=== PATIENT | female | born 2005 | race Hispanic/Latino ===

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

== ENCOUNTER 2023-09-22 07:38 | Emergency (ER) | payer OTHER ==
--- OUTSIDE RECORDS SUMMARY | 2023-09-22 07:42 | XMS REPORT | Continuity of Care Document ---
:2005 Author Organization [facility] t Address [address] [place] [address] [address] [place] [address] Care Team Providers Name Role Phone Steve Medeiros MD Primary Care Physician [phone] OTHER, ENTER NAME IN NOTES Attending Clinician Unavailable GENET SELLERS Attending Clinician Unavailable [email or web address] Attending Clinician Unavailable L_Borisa Attending Clinician Unavailable [id number], [id number] Attending Clinician Unavailable COLIN ROLLINS Attending Clinician Unavailable Colin Rollins Attending Clinician Kylie Greene Attending Clinician [phone] BECCA_Bell Attending Clinician Unavailable Caroline Gonzalez Attending Clinician [phone] MING RICHMOND Attending Clinician Unavailable MING RICHMOND Attending Clinician Unavailable Doctor Unassigned, [place] Attending Clinician Unavailable Meaghan Jaramillo Attending Clinician Unavailable RADIOLOGY Attending Clinician Unavailable Radiology Attending Clinician Unavailable Sofia Post Attending Clinician [phone] [email or web address] Admitting Clinician Unavailable L_Pena Admitting Clinician Unavailable COLIN ROLLINS Admitting Clinician Unavailable Labhelgae, [facility] Admitting Clinician WATERS_S Admitting Clinician Unavailable Physician, No Primary or Family Admitting Clinician UnavailERIN Soto Admitting Clinician Unavailable Payers Payer Name Policy Type Policy Number Effective Date Expiration Date Bell jackson CIGNA [id number] 2019 2022 00:00:00 00:00:00 XIANG JUDD - [id number] AETNA (PPO) AETNA 2 [id number] 2023 00:00:00 CIGNA - ACS [id number] 2019 BENEFIT SERVICES 00:00:00 (PPO) CIGNA GENERIC [id number] 2021 00:00:00 Problems Condition Condition Condition Status Onset Resolution Last Treating Co mments Source Name Details Category Date Date Treatment Clinician Date DARIER'S DARIER'S Diagnosis Active 2023-06-29 Memoria DZ DZ Active 06-20 16:10:00 l 06/20/2023 00:00: Kvng SNYDER [address] 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 3-08 Communi and and 00:00: ty 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 spita disorder Disorder l Clinics Mood Mood Problem Active [place] swings Swings 3-08 Communi 00:00: ty 00 [facility] Clin[facility] Acute Acute Problem Active [place] right Right 222 Communi otitis Otitis 00:00: ty media Media 00 Hospita Clinics Otalgia of Otalgia of Problem Active S [facility] left ear Left Ear 2 Commun i 00:00: ty 00 [facility]ospita l Clinics Otalgia of Otalgia of Problem Active [facility] [place] right ear Right Ear 2- Comm uni 00:00: ty Hospita l Clinics Viral Viral Problem Active 2021-11 [place] syndrome Syndrome 2- Commun i 00:00: ty 00 [facility]ospita Clinics Headache Headache Problem Active 2021-11 [facility] 2- Communi 00:00: ty 00 [facility]osp[facility] Clin[facility] Diarrhea Diarrhea Problem Active 2021-11 [facility] 2 Communi 00:00: ty 00 [facility]ospita l Clinics Streptococ Streptococ Problem Active 2021-11 S [facility]en[facility] korey sore korey Sore 2-02 Commun i throat Throat 00:00: ty 00 [facility] Pain in Pain in Problem Active 2021-11 [place] throat Throat 2-02 Communi 00:00: ty 00 [facility] Nasal Nasal Problem Active 2021-11 [place] congestion Congestion 2-02 Co mmuni 00:00: ty 00 [employer] Fatigue Fatigue Problem Active 2021-11 [place] 2-02 Communi 00:00: ty 00 [facility] Recurrent Recurrent Problem Active Swe mike urinary Urinary 9-15 Communi tract Tract 00:00: ty infection Infection 00 [facility] Nausea and Nausea and Problem Active S [facility] vomiting Vomiting 9-15 Commun i 00:00: ty 00 [employer] Nausea Nausea Problem Active [place] 9-15 Communi 00:00: ty 00 [employer] Upper Upper Problem Active [place] abdominal Abdominal 9-15 Comm uni pain Pain 00:00: ty 00 [employer] Urinary Urinary Problem Active [place] tract Tract 7-18 Communi infectious Infectious 00:00: ty disease Disease 00 [facility] Cyst of Cyst of Problem Active [place] ovary Ovary 7-18 Communi 00:00: ty 00 [employer] Pain in Pain in Problem Active [place] pelvis Pelvis 7-18 Communi 00:00: ty 00 [employer] Abdominal Abdominal Problem Active Swe mike pain Pain 7-18 Communi 00:00: ty 00 [facility] Initiation Initiation Disease Active U nivers of oral of oral 3-25 ity of contracept [place]pt [place] [facility] Nexplanon Nexplanon Disease Active Uni vers in place in place 3-25 ity of 00:00: [place] [facility] Obesity Obesity Disease Active Univers (BMI (BMI 3-25 ity of 30-39.9) 30-39.9) 00:00: [place] [facility] Darier's Darier's Disease Active Unive rs disease disease 3-25 ity of 00:00: [place] 00 [facility] Cyst of Cyst of Disease Active Univers ovary, ovary, 3-25 ity of unspecifie unspecifie [place] [facility] laterality laterality Br anch Endometrio Endometrio Disease Active U frannyers sis sis 3-25 ity of 00:00: [place] 00 [facility] History of History of Disease Active U aileen depression depression 3-25 it y of 00:00: [place] 00 [facility] Darier Darier Problem Active [place] disease Disease 5-13 Communi 00:00: ty 00 Hospita l Clinics Obesity Obesity Problem Active 2023-06-25 Me moria (disorder) (disorder) 04:21:16 l Active [place] Problem 06/25/2023 [facility] Allergies, Adverse Reactions, Alerts Allergy Allergy Status Severity Reaction(s) Onset Inactive Treating Comm ents Source Name Type Date Date Clinician Vancomyc Propensi Active Unknown - Uni vers in ty to See comments 3-25 ity of adverse 00:00: [place] reaction 00 Medical s Branch VANCOMYC DRUG Active Unknown-Cmnt Un simran IN INGREDI 3-25 ity of 00:00: [place] 00 [facility] vancomyc DA Active SV THROAT [facility] in CLOSING 01-05 [place] 00:00: d 00 Medical [place] vancomyc vancomyc Active Memori a in in l [place] Aloe Aloe Active Memoria Vera Vera l Juice Juice Vega Kiwi-Str Kiwi-Str awberry awberry Social History Social Habit Start Date Stop Date Quantity Comments Source History SDOH [facility] o [facility] Alcohol Std [place] [facility] Drinks [facility] History SDOH [facility] o f Alcohol Binge [place] [facility] History SDGA [facility] o f Alcohol Comment [place] [facility] Alcohol intake 2023-05-16 2023-05-16 Lifetime [facility] 00:00:00 00:00:00 non-drinker (finding) Tobacco use and 2022-05-10 2022-05-10 Smokeless tobacco [facility] exposure 00:00:00 00:00:00 non-user Exposure to 2022-01-06 2022-02-05 Not sure University of SARS-CoV-2 00:00:00 15:00:00 [place] [facility] (event) [facility] History SDOH 2022-02-05 2022-02-05 1 [place] o f Alcohol Frequency 00:00:00 00:00:00 [facility] Sex Assigned At [birth year] [facility] 00:00:00 00:00:00 Smoking Status Start Date Stop Date Source Tobacco smoking status [facility] Vega Medications Ordered Filled Start Stop Current Ordering Indication Dosage Frequency Signature Comments Components Source Medication Medication Date Date Medication? Clinician (SIG) Name Name linezolid Yes 600 mg = 1 Me moria 600 mg oral 8-09 tab, PO, l tablet 20:15: Q12H, X 10 Margie nn 00 day, # 20 tab, 0 Refill(s), Pharmacy: [facility] [id number], 165.1, cm, 06/20/23 20:17:00 CDT, Height, 87.273, kg, 06/20/23 20:17:00 CDT, Weight Wegovy (1 Yes 1 mg = 0.5 Me moria mg dose) 8-08 mL, SUB-Q, l subcutaneou 16:57: QTue, # 2 H ermann s solution 00 mL, 0 Refill(s) clindamycin Yes [id number] Apply U T (Clindagel) 6-27 daily to Heal th 1 % gel 00:00: face for 00 acne clindamycin Yes [id number] Apply U T (Clindagel) 6-27 daily to Heal th 1 % gel 00:00: face for 00 acne Norethindrn 2021- No [id number] 1{tbl} Take 1 Univers A-E -25 -18 tablet by ity of Estradiol-I 00:00[place] 04:[place] :00 daily Medical (BLISOVI 24 before a Bran ch FE) 1 mg-20 meal for mcg (24)/75 84 doses. mg (4) per tablet Norethindrn 2021- No [id number] 1{tbl} Take 1 Univers A-E 3-25 06-18 tablet by ity of Estradiol-I 00:00: 04:[place] :00 daily Medical (BLISOVI 24 before a Bran ch FE) 1 mg-20 meal for mcg (24)/75 84 doses. mg (4) per tablet pantoprazol Yes Univer s e 40 mg EC 3-22 ity of tablet 00:00: [address] pantoprazol Yes Univer s e 40 mg EC 3-22 ity of tablet 00:00: [address] methotrexat methotrexat No methotrexa [place] e sodium e sodium 5-13 te sodium Co mmuni 2.5 mg 2.5 mg 00:00: 2.5 mg ty tablet TAKE tablet TAKE 00 tablet Hospita 8 TABLETS 8 TABLETS TAKE 8 l PER WEEK. PER WEEK. TABLETS Cl inics PER WEEK. methotrexat methotrexat No methotrexa [place] e sodium e sodium 5-13 te sodium Co mmuni 2.5 mg 2.5 mg 00:00: 2.5 mg ty tablet TAKE tablet TAKE 00 tablet Hospita 8 TABLETS 8 TABLETS TAKE 8 l PER WEEK. PER WEEK. TABLETS Cl inics PER WEEK. methotrexat methotrexat No methotrexa [place] e sodium e sodium 5-13 te sodium Co mmuni 2.5 mg 2.5 mg 00:00: 2.5 mg ty tablet TAKE tablet TAKE 00 tablet Hospita 8 TABLETS 8 TABLETS TAKE 8 l PER WEEK. PER WEEK. TABLETS Cl inics PER WEEK. doxycycline doxycycline No 1capsul BID doxycyclin [place] hyclate 100 hyclate 100 e(s) e hyclate Communi mg capsule mg capsule 100 mg t y Take 1 Take 1 capsule Hospita capsule capsule Take 1 l twice a day twice a day capsule Clinics by oral by oral twice a route for route for day by 10 days. 10 days. oral route for 10 days. famotidine famotidine No 1 Q1D famotidine [place] 20 mg 20 mg 20 mg Communi tablet Take tablet Take tablet ty 1 tablet 1 tablet Take 1 Hospi ta every day every day tablet l by oral by oral every day Clin ics route. route. by oral route. folic acid folic acid No folic acid [place] 1 mg tablet 1 mg tablet 1 mg C ommuni TAKE 1 TAKE 1 tablet ty TABLET BY TABLET BY TAKE 1 [facility] MOUTH EVERY MOUTH EVERY TABLET BY l DAY DAY MOUTH Clinics EVERY DAY Gas Relief Gas Relief No 1capsul TID Gas Relief [place] (simethicon (simethicon e(s) (simethico Communi e) 250 mg e) 250 mg ne) 250 mg ty capsule capsule capsule Hospit a Take 1 Take 1 Take 1 l capsule 3 capsule 3 capsule 3 Clinics times a day times a day times a by oral by oral day by route. route. oral route. Nexplanon Nexplanon No Nexplanon [place] 68 mg 68 mg 68 mg Communi subdermal subdermal subdermal ty implant implant implant Hospit a Inject by Inject by Inject by l subcutaneou subcutaneou subcutaneo Clinics s route. s route. us route. pantoprazol pantoprazol No 1 Q1D pantoprazo [place] e 40 mg e 40 mg le 40 mg Commu ni tablet,imelda tablet,imelda tablet,del ty yed release yed release ayed H ospita Take 1 Take 1 release l tablet tablet Take 1 Clinics every day every day tablet by oral by oral every day route. route. by oral route. Lenora 24 Lenora 24 No [place] 24 [place] Fe 1 mg-20 Fe 1 mg-20 Fe 1 mg-20 Communi mcg (24)/75 mcg (24)/75 mcg t y mg (4) mg (4) (24)/75 mg Hospi ta tablet TAKE tablet TAKE (4) tablet l 1 TABLET BY 1 TABLET BY TAKE 1 Clinics MOUTH DAILY MOUTH DAILY TABLET BY BEFORE A BEFORE A MOUTH MEAL FOR 84 MEAL FOR 84 DAILY DOSES. DOSES. BEFORE A MEAL FOR 84 DOSES. amoxicillin amoxicillin No 1 Q12H amoxicilli [place] [phone] n 875 Communi mg-potassiu mg-potassiu mg-potassi ty m m [facility] clavulanate clavulanate clavulanat l 125 mg 125 mg e 125 mg Clinics tablet Take tablet Take tablet 1 tablet 1 tablet Take 1 every 12 every 12 tablet hours by hours by every 12 oral route oral route hours by for 10 for 10 oral route days. days. for 10 days. benzonatate benzonatate No 1capsul TID benzonatat [place] 200 mg 200 mg e(s) e 200 mg Communi capsule capsule capsule ty Take 1 Take 1 Take 1 Hospita capsule 3 capsule 3 capsule 3 l times a day times a day times a Clinics by oral by oral day by route as route as oral route needed for needed for as needed 7 days. 7 days. for 7 days. [place] 24 [place] 24 No [place] 24 [place] Fe 1 mg-20 Fe 1 mg-20 Fe 1 mg-20 Communi mcg (24)/75 mcg (24)/75 mcg t y mg (4) mg (4) (24)/75 mg Hospi ta tablet TAKE tablet TAKE (4) tablet l 1 TABLET BY 1 TABLET BY TAKE 1 Clinics MOUTH DAILY MOUTH DAILY TABLET BY BEFORE A BEFORE A MOUTH MEAL FOR 84 MEAL FOR 84 DAILY DOSES. DOSES. BEFORE A MEAL FOR 84 DOSES. amoxicillin amoxicillin No 1 Q12H amoxicilli [place] [phone] n 875 Communi mg-potassiu mg-potassiu mg-potassi ty m m um Hospita clavulanate clavulanate clavulanat l 125 mg 125 mg e 125 mg Clinics tablet Take tablet Take tablet 1 tablet 1 tablet Take 1 every 12 every 12 tablet hours by hours by every 12 oral route oral route hours by for 10 for 10 oral route days. days. for 10 days. benzonatate benzonatate No 1capsul TID benzonatat [place] 200 mg 200 mg e(s) e 200 mg Communi capsule capsule capsule ty Take 1 Take 1 Take 1 Hospita capsule 3 capsule 3 capsule 3 l times a day times a day times a Clinics by oral by oral day by route as route as oral route needed for needed for as needed 7 days. 7 days. for [address] 24 No [place] 24 [place] Fe 1 mg-20 Fe 1 mg-20 Fe 1 mg-20 Communi mcg (24)/75 mcg (24)/75 mcg t y mg (4) mg (4) (24)/75 mg Hospi ta tablet TAKE tablet TAKE (4) tablet l 1 TABLET BY 1 TABLET BY TAKE 1 [facility] MOUTH DAILY MOUTH DAILY TABLET BY BEFORE A BEFORE A MOUTH MEAL FOR 84 MEAL FOR 84 DAILY DOSES. DOSES. BEFORE A MEAL FOR 84 DOSES. [place] 24 [place] 24 No [place] 24 [place] Fe 1 mg-20 Fe 1 mg-20 Fe 1 mg-20 Communi mcg (24)/75 mcg (24)/75 mcg t y mg (4) mg (4) (24)/75 mg Hospi ta tablet TAKE tablet TAKE (4) tablet l 1 TABLET BY 1 TABLET BY TAKE 1 Clinics MOUTH DAILY MOUTH DAILY TABLET BY BEFORE A BEFORE A MOUTH MEAL FOR 84 MEAL FOR 84 DAILY DOSES. DOSES. BEFORE A MEAL FOR 84 DOSES. sulfamethox sulfamethox No 1 Q12H sulfametho [place] azole 800 azole 800 xazole 800 Communi mg-trimetho mg-trimetho mg-trimeth ty prim 160 mg prim 160 mg oprim 160 Hospita tablet Take tablet Take mg tablet l 1 tablet 1 tablet Take 1 Clini cs every 12 every 12 tablet hours by hours by every 12 oral route oral route hours by for 10 for 10 oral route days. days. for 10 days. Nexplanon Nexplanon No Nexplanon [place] 68 mg 68 mg 68 mg Communi subdermal subdermal subdermal ty implant implant implant Hospit a l Clinics ondansetron ondansetron No 1 BID ondansetro [place] 8 mg 8 mg n 8 mg Communi disintegrat disintegrat disintegra ty ing tablet ing tablet ting [facility] Place 1 Place 1 tablet l tablet tablet Place 1 Clinics twice a day twice a day tablet by by twice a translingua translingua day by l route as l route as translingu needed for needed for al route 3 days. 3 days. as needed for 3 days. cefdinir cefdinir No 1capsul Q12H cefdinir [place] 300 mg 300 mg e(s) 300 mg Communi capsule capsule capsule ty Take 1 Take 1 Take 1 Hospita capsule capsule capsule l every 12 every 12 every 12 Cli nics hours by hours by hours by oral route oral route oral route for 10 for 10 for 10 days. days. days. Cortisporin Cortisporin No 4drop(s QID Cortispori [place] -TC 3.3 -TC 3.3 ) n-TC 3.3 Commu ni mg-3 mg-10 mg-3 mg-10 mg-3 mg-10 ty mg-0.5 mg-0.5 mg-0.5 Hospita mg/mL ear mg/mL ear mg/mL ear l drops,suspe drops,suspe drops,susp Clinics nsion nsion ension Instill 4 Instill 4 Instill 4 drops 4 drops 4 drops 4 times a day times a day times a by otic by otic day by route as route as otic route directed. directed. as directed. hydrocodone hydrocodone No hydrocodon [place] 7.5 7.5 e 7.5 Communi mg-acetamin mg-acetamin mg-acetami ty ophen 325 ophen 325 nophen 325 Hospita mg tablet mg tablet mg tablet l TAKE 1 TAKE 1 TAKE 1 Clinics TABLET BY TABLET BY TABLET BY MOUTH EVERY MOUTH EVERY MOUTH 4 TO 6 4 TO 6 EVERY 4 TO HOURS HOURS 6 HOURS NEEDED FOR NEEDED FOR NEEDED FOR PAIN PAIN PAIN Nexplanon Nexplanon No Nexplanon [place] 68 mg 68 mg 68 mg Communi subdermal subdermal subdermal ty implant implant implant Hospit a l Clinics ondansetron ondansetron No ondansetro [place] 4 mg 4 mg n 4 mg Communi disintegrat disintegrat disintegra ty ing tablet ing tablet ting [facility] DISSOLVE 1 DISSOLVE 1 tablet l TABLET TABLET DISSOLVE 1 Clini cs UNDER UNDER TABLET TONGUE TONGUE UNDER EVERY 6 EVERY 6 TONGUE HOURS HOURS EVERY 6 NEEDED FOR NEEDED FOR HOURS NAUSEA NAUSEA NEEDED FOR NAUSEA ondansetron ondansetron No ondansetro [place] 8 mg 8 mg n 8 mg Communi disintegrat disintegrat disintegra ty ing tablet ing tablet ting [facility] PL[facility] [address] 1 tablet l TABLET TABLET PLACE 1 Clinics TWICE A DAY TWICE A DAY TABLET BY BY TWICE A TRANSLINGUA TRANSLINGUA DAY BY L ROUTE L ROUTE TRANSLINGU NEEDED FOR NEEDED FOR AL ROUTE 3 DAYS. 3 DAYS. NEEDED FOR 3 DAYS. azithromyci azithromyci No 1 Q1D azithromyc [place] n 500 mg n 500 mg in 500 mg Co mmuni tablet Take tablet Take tablet ty 1 tablet 1 tablet Take 1 Hospi ta every day every day tablet l by oral by oral every day Clin ics route for 5 route for 5 by oral days. days. route for 5 days. Blisovi Fe Blisovi Fe No Blisovi Fe [place] 12/03 (28) 1 12/03 (28) 1 12/03 (28) Communi mg-20 mcg mg-20 mcg 1 mg-20 ty (21)/75 mg (21)/75 mg mcg [facility] (7) tablet (7) tablet (21)/75 mg l (7) tablet Clinics ondansetron ondansetron No ondansetro [place] 4 mg 4 mg n 4 mg Communi disintegrat disintegrat disintegra ty ing tablet ing tablet ting [facility] DISSOLVE 1 DISSOLVE 1 tablet l TABLET TABLET DISSOLVE 1 Clini cs UNDER UNDER TABLET TONGUE TONGUE UNDER EVERY 6 EVERY 6 TONGUE HOURS HOURS EVERY 6 NEEDED FOR NEEDED FOR HOURS NAUSEA NAUSEA NEEDED FOR NAUSEA ondansetron ondansetron No ondansetro [place] 8 mg 8 mg n 8 mg Communi disintegrat disintegrat disintegra ty ing tablet ing tablet ting [facility] PL[facility] [address] 1 tablet l TABLET TABLET PLACE 1 Clinics TWICE A DAY TWICE A DAY TABLET BY BY TWICE A TRANSLINGUA TRANSLINGUA DAY BY L ROUTE L ROUTE TRANSLINGU NEEDED FOR NEEDED FOR AL ROUTE 3 DAYS. 3 DAYS. NEEDED FOR 3 DAYS. Blisovi Fe Blisovi Fe No Blisovi Fe [place] 12/03 () 1 12/03 () 1 12/03 () Communi mg-20 mcg mg-20 mcg 1 mg-20 ty (21)/75 mg (21)/75 mg mcg [facility] (7) tablet (7) tablet (21)/75 mg l (7) tablet Clinics Linzess 290 Linzess 290 No Linzess [place] mcg capsule mcg capsule 290 mcg Communi capsule ty Hospita l Clinics ondansetron ondansetron No ondansetro [place] 4 mg 4 mg n 4 mg Communi disintegrat disintegrat disintegra ty ing tablet ing tablet ting [facility] DISSOLVE 1 DISSOLVE 1 tablet l TABLET TABLET DISSOLVE 1 Clini cs UNDER UNDER TABLET TONGUE TONGUE UNDER EVERY 6 EVERY 6 TONGUE HOURS HOURS EVERY 6 NEEDED FOR NEEDED FOR HOURS NAUSEA NAUSEA NEEDED FOR NAUSEA ondansetron ondansetron No ondansetro [place] 8 mg 8 mg n 8 mg Communi disintegrat disintegrat disintegra ty ing tablet ing tablet ting [facility] PL[facility] [address] 1 tablet l TABLET TABLET PLACE 1 Clinics TWICE A DAY TWICE A DAY TABLET BY BY TWICE A TRANSLINGUA TRANSLINGUA DAY BY L ROUTE L ROUTE TRANSLINGU NEEDED FOR NEEDED FOR AL ROUTE 3 DAYS. 3 DAYS. NEEDED FOR 3 DAYS. Blisovi Fe Blisovi Fe No Blisovi Fe [place] 12/03 (28) 1 12/03 (28) 1 12/03 (28) Communi mg-20 mcg mg-20 mcg 1 mg-20 ty (21)/75 mg (21)/75 mg mcg [facility] (7) tablet (7) tablet (21)/75 mg l (7) tablet Clinics chlorhexidi chlorhexidi No chlorhexid [place] ne ne ine Communi gluconate gluconate gluconate ty 0.12 % 0.12 % 0.12 % Hospita mouthwash mouthwash mouthwash l SWAB SWAB SWAB Clinics IMPLANT IMPLANT IMPLANT WITH WITH WITH SOLUTION SOLUTION SOLUTION TWICE DAILY TWICE DAILY TWICE AFTER AFTER DAILY BRUSHING. BRUSHING. AFTER SPIT DO NOT SPIT DO NOT BRUSHING. SWALLOW SWALLOW SPIT DO NOT SWALLOW hydrocodone hydrocodone No hydrocodon [place] 7.5 7.5 e 7.5 Communi mg-acetamin mg-acetamin mg-acetami ty ophen 325 ophen 325 nophen 325 Hospita mg tablet mg tablet mg tablet l TAKE 1 TAKE 1 TAKE 1 Clinics TABLET TABLET TABLET EVERY 4 TO EVERY 4 TO EVERY 4 TO 6 HOURS 6 HOURS 6 HOURS NEEDED FOR NEEDED FOR NEEDED FOR PAIN PAIN PAIN neomycin-po neomycin-po No neomycin-p [place] lymyxin-hyd lymyxin-hyd olymyxin-h Communi rocort 3.5 rocort 3.5 ydrocort ty mg-10,000 mg-10,000 3.5 Hospi ta unit/mL-1 % unit/mL-1 % mg-10,000 l ear ear unit/mL-1 Clinics drops,susp drops,susp % ear INSTILL 4 INSTILL 4 drops,susp DROPS INTO DROPS INTO INSTILL 4 AFFECTED AFFECTED DROPS INTO EAR(S) BY EAR(S) BY AFFECTED OTIC ROUTE OTIC ROUTE EAR(S) BY 3 TIMES PER 3 TIMES PER OTIC ROUTE DAY FOR 7 DAY FOR 7 3 TIMES DAYS DAYS PER DAY FOR 7 DAYS aripiprazol aripiprazol No 1 Q1D aripiprazo [place] e 2 mg e 2 mg le 2 mg Communi tablet Take tablet Take tablet ty 1 tablet 1 tablet Take 1 Hospi ta every day every day tablet l by oral by oral every day Clin ics route. route. by oral route. Blisovi Fe Blisovi Fe No Blisovi Fe [place] 12/03 (28) 1 12/03 (28) 1 12/03 (28) Communi mg-20 mcg mg-20 mcg 1 mg-20 ty (21)/75 mg (21)/75 mg mcg [facility] (7) tablet (7) tablet (21)/75 mg l (7) tablet Clinics chlorhexidi chlorhexidi No chlorhexid [place] ne ne mercedes Mejiai gluconate gluconate gluconate ty 0.12 % 0.12 % 0.12 % Hospita mouthwash mouthwash mouthwash l SWAB SWAB SWAB [facility] IMPLANT IMPLANT IMPLANT WITH WITH WITH SOLUTION SOLUTION SOLUTION TWICE DAILY TWICE DAILY TWICE AFTER AFTER DAILY BRUSHING. BRUSHING. AFTER SPIT DO NOT SPIT DO NOT BRUSHING. SWALLOW SWALLOW SPIT DO NOT SWALLOW aripiprazol aripiprazol No aripiprazo [place] e 2 mg e 2 mg le 2 mg Communi tablet TAKE tablet TAKE tablet ty 1 TABLET BY 1 TABLET BY TAKE 1 Hospita MOUTH EVERY MOUTH EVERY TABLET BY l DAY DAY MOUTH Clinics EVERY DAY chlorhexidi chlorhexidi No chlorhexid [place] ne ne ine Communi gluconate gluconate gluconate ty 0.12 % 0.12 % 0.12 % Hospita mouthwash mouthwash mouthwash l SWAB SWAB SWAB [facility] IMPLANT IMPLANT IMPLANT WITH WITH WITH SOLUTION SOLUTION SOLUTION TWICE DAILY TWICE DAILY TWICE AFTER AFTER DAILY BRUSHING. BRUSHING. AFTER SPIT DO NOT SPIT DO NOT BRUSHING. SWALLOW SWALLOW SPIT DO NOT SWALLOW Loryna (28) Loryna (28) No Loryna [place] 3 mg-0.02 3 mg-0.02 (28) 3 Com luis mg tablet mg tablet mg-0.02 mg ty TAKE 1 TAKE 1 tablet Hospita TABLET BY TABLET BY TAKE 1 l MOUTH EVERY MOUTH EVERY TABLET BY Clinics DAY FOR 28 DAY FOR 28 MOUTH DAYS DAYS EVERY DAY FOR 28 DAYS compounded compounded No compounded [place] medication medication medication Communi Semagltuide Semagltuide Semagltuid ty /12 SQ QW /12 SQ QW e/12 SQ QW Hospita increase as increase as increase l tolerated tolerated as Clini cs on weekly on weekly tolerated increments increments on weekly as directed as directed increments as directed aripiprazol aripiprazol No aripiprazo [place] e 2 mg e 2 mg le 2 mg Communi tablet TAKE tablet TAKE tablet ty 1 TABLET BY 1 TABLET BY TAKE 1 Hospita MOUTH EVERY MOUTH EVERY TABLET BY l DAY DAY MOUTH Clinics EVERY DAY compounded compounded No compounded [place] medication medication medication Communi Semagltuide Semagltuide Semagltuid ty /12 SQ QW /12 SQ QW e/12 SQ QW Hospita increase as increase as increase l tolerated tolerated as Clini cs on weekly on weekly tolerated increments increments on weekly as directed as directed increments as directed Loryna (28) L[place]na (28) No 1 Q1D Loryna [place] 3 mg-0.02 3 mg-0.02 (28) 3 Com luis mg tablet mg tablet mg-0.02 mg ty Take 1 Take 1 tablet Hospita tablet tablet Take 1 l every day every day tablet Cli nics by oral by oral every day route. route. by oral route. ondansetron ondansetron No ondansetro [place] 4 mg 4 mg n 4 mg Communi disintegrat disintegrat disintegra ty ing tablet ing tablet ting [facility] PL[facility] [address] PL[address] 2 tablet l TABLETS TABLETS PLACE 2 Clinic s TWICE A DAY TWICE A DAY TABLETS BY BY TWICE A TRANSLINGUA TRANSLINGUA DAY BY L ROUTE FOR L ROUTE FOR TRANSLINGU 10 DAYS. 10 DAYS. AL ROUTE FOR 10 DAYS. compounded compounded No compounded [place] medication medication medication Communi Semagltuide Semagltuide Semagltuid ty /12 SQ QW /12 SQ QW e/12 SQ QW Hospita increase as increase as increase l tolerated tolerated as Clini cs on weekly on weekly tolerated increments increments on weekly as directed as directed increments as directed compounded compounded No compounded [place] medication medication medication Communi Semagltuide Semagltuide Semagltuid ty /12 SQ QW /12 SQ QW e/12 SQ QW Hospita increase as increase as increase l tolerated tolerated as Clini cs on weekly on weekly tolerated increments increments on weekly as directed as directed increments as directed ondansetron ondansetron No 2 BID ondansetro [place] 4 mg 4 mg n 4 mg Communi disintegrat disintegrat disintegra ty ing tablet ing tablet ting [facility] 2 Place 2 tablet l tablets tablets Place 2 Clinic s twice a day twice a day tablets by by twice a translingua translingua day by l route for l route for translingu 10 days. 10 days. al route for 10 days. silver silver No silver [place] sulfadiazin sulfadiazin sulfadiazi Communi e 1 % e 1 % ne 1 % ty topical topical topical Hospit a cream APPLY cream APPLY cream l TO AFFECTED TO AFFECTED APPLY TO Clinics AREA EVERY AREA EVERY AFFECTED DAY DAY AREA EVERY DAY aripiprazol aripiprazol No 1 Q1D aripiprazo [place] e 2 mg e 2 mg le 2 mg Communi tablet Take tablet Take tablet ty 1 tablet 1 tablet Take 1 Hospi ta every day every day tablet l by oral by oral every day Clin ics route for route for by oral 30 days. 30 days. route for 30 days. folic acid folic acid No folic acid [place] 1 mg tablet 1 mg tablet 1 mg C ommuni TAKE 1 TAKE 1 tablet ty TABLET BY TABLET BY TAKE 1 [facility] MOUTH EVERY MOUTH EVERY TABLET BY l DAY DAY MOUTH Clinics EVERY DAY levofloxaci levofloxaci No 1 Q24H levofloxac [place] n 500 mg n 500 mg in 500 mg Co mmuni tablet Take tablet Take tablet ty 1 tablet 1 tablet Take 1 Hospi ta every 24 every 24 tablet l hours by hours by every 24 Cli nics oral route oral route hours by for 7 days. for 7 days. oral route for 7 days. sulfamethox sulfamethox No 1 Q12H sulfametho [place] azole 800 azole 800 xazole 800 Communi mg-trimetho mg-trimetho mg-trimeth ty prim 160 mg prim 160 mg oprim 160 Hospita tablet Take tablet Take mg tablet l 1 tablet 1 tablet Take 1 Clini cs every 12 every 12 tablet hours by hours by every 12 oral route oral route hours by for 10 for 10 oral route days. days. for 10 days. aripiprazol aripiprazol No aripiprazo [place] e 2 mg e 2 mg le 2 mg Communi tablet Take tablet Take tablet ty 1 tablet 1 tablet Take 1 Hospi ta every day every day tablet l by oral by oral every day Clin ics route for route for by oral 30 days. 30 days. route for 30 days. folic acid folic acid No folic acid [place] 1 mg tablet 1 mg tablet 1 mg C ommuni TAKE 1 TAKE 1 tablet ty TABLET BY TABLET BY TAKE 1 [facility] MOUTH EVERY MOUTH EVERY TABLET BY l DAY DAY MOUTH Clinics EVERY DAY Zovirax 5 % Zovirax 5 % No Zovirax 5 [place] topical topical % topical Comm uni ointment ointment ointment ty APPLY TO APPLY TO APPLY TO [facility] THE THE THE l AFFECTED AFFECTED AFFECTED Cli nics AREA(S) BY AREA(S) BY AREA(S) BY TOPICAL TOPICAL TOPICAL ROUTE EVERY ROUTE EVERY ROUTE 3 HOURS 6 3 HOURS 6 EVERY 3 TIMES PER TIMES PER HOURS 6 DAY DAY TIMES PER DAY Vital Signs Vital Name Observation Time Observation Value Comments Source BMI (Body Mass 2023-07-28 00:00:00 33.4 kg/m2 [facility]) [facility] BP Systolic 2023-07-28 00:00:00 115 mm[Hg] [facility] Body Weight 2023-07-28 00:00:00 3210 [oz_av] [facility] Height 2023-07-28 00:00:00 65 [in_i] [facility] BP Diastolic 2023-07-28 00:00:00 65 mm[Hg] [facility] BP Diastolic 2023-05-20 00:00:00 63 mm[Hg] [facility] Height 2023-05-20 00:00:00 65 [in_i] [facility] BMI (Body Mass 2023-05-20 00:00:00 34.7 kg/m2 [facility]) [facility] BP Systolic 2023-05-20 00:00:00 103 mm[Hg] [facility] Body Weight 2023-05-20 00:00:00 3334.4 [oz_av] [facility] s BP Diastolic 2023-03-17 00:00:00 71 mm[Hg] [facility] Height 2023-03-17 00:00:00 65 [in_i] [facility] BMI (Body Mass 2023-03-17 00:00:00 36.6 kg/m2 [facility] BP Systolic 2023-03-17 00:00:00 124 mm[Hg] [facility] Body Weight 2023-03-17 00:00:00 3520 [oz_av] [facility] BP Diastolic 2023-02-07 00:00:00 71 mm[Hg] [facility] Height 2023-02-07 00:00:00 65 [in_i] [facility] BMI (Body Mass 2023-02-07 00:00:00 36.2 kg/m2 [facility] BP Systolic 2023-02-07 00:00:00 101 mm[Hg] [facility] Body Weight 2023-02-07 00:00:00 3481.6 [oz_av] [facility] s BP Diastolic 2023-01-19 00:00:00 60 mm[Hg] [facility] Height 2023-01-19 00:00:00 65 [in_i] [facility] BMI (Body Mass 2023-01-19 00:00:00 36.6 kg/m2 [facility] BP Systolic 2023-01-19 00:00:00 112 mm[Hg] [facility] Body Weight 2023-01-19 00:00:00 3520 [oz_av] [facility] BP Diastolic 2023-01-05 00:00:00 61 mm[Hg] [facility] Height 2023-01-05 00:00:00 65 [in_i] [facility] BMI (Body Mass 2023-01-05 00:00:00 36.5 kg/m2 [facility]) [facility] BP Systolic 2023-01-05 00:00:00 112 mm[Hg] [facility] Body Weight 2023-01-05 00:00:00 3510.4 [oz_av] [facility] s BP Diastolic 2022-11-16 00:00:00 67 mm[Hg] [facility] Height 2022-11-16 00:00:00 65 [in_i] [facility] BMI (Body Mass 2022-11-16 00:00:00 36.9 kg/m2 [facility] s BP Systolic 2022-11-16 00:00:00 106 mm[Hg] [facility] Body Weight 2022-11-16 00:00:00 3552 [oz_av] [facility] BP Diastolic 2022-11-09 00:00:00 76 mm[Hg] [facility] Height 2022-11-09 00:00:00 65 [in_i] [facility] BMI (Body Mass 2022-11-09 00:00:00 36.5 kg/m2 [facility]) [facility] BP Systolic 2022-11-09 00:00:00 112 mm[Hg] [facility] Body Weight 2022-11-09 00:00:00 3510.4 [oz_av] [facility] s BP Diastolic 2022-10-15 00:00:00 76 mm[Hg] [facility] Height 2022-10-15 00:00:00 65 [in_i] [facility] BMI (Body Mass 2022-10-15 00:00:00 36.1 kg/m2 [facility] s BP Systolic 2022-10-15 00:00:00 108 mm[Hg] [facility] Body Weight 2022-10-15 00:00:00 3468.8 [oz_av] [facility] s BP Diastolic 2022-07-29 00:00:00 54 mm[Hg] [facility] Height 2022-07-29 00:00:00 65 [in_i] [facility] BMI (Body Mass 2022-07-29 00:00:00 37 kg/m2 [facility]) [facility] BP Systolic 2022-07-29 00:00:00 113 mm[Hg] [facility] Body Weight 2022-07-29 00:00:00 3558.4 [oz_av] [facility] s BP Diastolic 2022-05-31 00:00:00 57 mm[Hg] [facility] Height 2022-05-31 00:00:00 65 [in_i] [facility] BMI (Body Mass 2022-05-31 00:00:00 36.8 kg/m2 [facility]) [facility] BP Systolic 2022-05-31 00:00:00 96 mm[Hg] [facility] Body Weight 2022-05-31 00:00:00 3536 [oz_av] [facility] BP Diastolic 2022-03-10 00:00:00 69 mm[Hg] [facility] Height 2022-03-10 00:00:00 65 [in_i] [facility] BMI (Body Mass 2022-03-10 00:00:00 36.2 kg/m2 [facility]) [facility] BP Systolic 2022-03-10 00:00:00 118 mm[Hg] [facility] Body Weight 2022-03-10 00:00:00 3484.8 [oz_av] [facility] s Systolic blood 2022-02-05 20:20:00 109 mm[Hg] Univer sity of pressure [facility] Diastolic blood 2022-02-05 20:20:00 66 mm[Hg] Unive rsity of pressure [facility] Heart rate 2022-02-05 20:20:00 61 /min Universi ty [facility] Respiratory rate 2022-02-05 20:20:00 18 /min Univ ersity of [facility] Body height 2022-02-05 20:20:00 165.1 cm Universi ty [facility] Body weight 2022-02-05 20:20:00 100.472 kg [facility] BMI 2022-02-05 20:20:00 36.86 kg/m2 [facility] Body mass index 2022-02-05 20:20:00 98.03 % Unive rsity of (BMI) [Percentile] [facility] ica Per age and sex Branch Oxygen saturation in 2022-02-05 20:20:00 100 /min University Arterial blood by [facility] Pulse oximetry Branch BP Diastolic 2021-11-30 00:00:00 69 mm[Hg] [facility] Height 2021-11-30 00:00:00 65 [in_i] [facility] BMI (Body Mass 2021-11-30 00:00:00 36.9 kg/m2 [facility]) [facility] BP Systolic 2021-11-30 00:00:00 126 mm[Hg] [facility] Body Weight 2021-11-30 00:00:00 3548.8 [oz_av] [facility] s BP Diastolic 2021-08-26 00:00:00 63 mm[Hg] [facility] Height 2021-08-26 00:00:00 65 [in_i] [facility] BMI (Body Mass 2021-08-26 00:00:00 34.8 kg/m2 [facility] s BP Systolic 2021-08-26 00:00:00 110 mm[Hg] [facility] Body Weight 2021-08-26 00:00:00 3342.4 [oz_av] [facility] s BP Diastolic 2021-07-02 00:00:00 70 mm[Hg] [facility] Height 2021-07-02 00:00:00 65 [in_i] [facility] BMI (Body Mass 2021-07-02 00:00:00 33.6 kg/m2 [facility] s BP Systolic 2021-07-02 00:00:00 111 mm[Hg] [facility] Body Weight 2021-07-02 00:00:00 3232 [oz_av] Ned De Jesus [facility] s Heart Rate 2023-06-22 16:45:04 Vineet Vega Systolic (mm Hg) 2023-06-22 16:44:43 Cy Ferrari Diastolic (mm Hg) 2023-06-22 16:44:43 [facility] [place] Temperature Oral (F) 2023-06-22 16:44:28 98.4 F [facility] Height 2023-06-21 01:17:00 5 [ft_i] [facility] Weight 2023-06-21 01:17:00 [facility] BMI Calculated 2023-06-21 01:17:00 Nolan Lewis Procedures Procedure Date / Time Performing Clinician Source Performed XR, knee, 3 view 2023-05-20 00:00:00 [facility] MRI, knee, w/o contrast 2023-05-20 00:00:00 [facility] HEPATIC FUNCTION PANEL 2023-05-16 19:24:00 Naveen Louis H ealt CBC AND DIFFERENTIAL 2023-05-16 19:24:00 Naveen Louis [facility] CULTURE, AEROBIC AND 2023-05-16 19:24:00 Naveen Louis [facility] ANAEROBIC W/GRAM STAIN XR, lumbosacral spine, 2 2023-02-07 00:00:00 [facility] or 3 view [facility] XR, hip + pelvis, 2023-02-07 00:00:00 [facility] bilateral [facility] CT, abdomen + pelvis, w/ 2022-07-29 00:00:00 [facility] US, pelvis 2022-05-31 00:00:00 [facility] POCT TEST 2022-02-05 20:43:00 Rose Carcamo [facility] CONSENT FOR 2022-02-05 05:01:00 Doctor Unassigned, No [facility] CONTRACEPTION Name Medical Branch MRI, abdomen + pelvis, 2021-11-30 00:00:00 [facility] w/wo contrast [facility] XR, knee, 3 view 2021-08-26 00:00:00 [facility] XR, lumbosacral spine, 2021-08-26 00:00:00 [facility] Remove Tonsils and [facility] Adenoids [facility] Plan of Care Planned Activity Planned Date Details Comments Source Diagnostic Test Pending 2023-01-05 rapid strep group [facility] 00:00:00 A, throat [code = [facility] A, throat] Instructions [facility] Clinic s Encounters Start End Encounter Admission Attending Care Care Encounter Source Date/Time Date/Time Type Type Clinicians Facility Department ID 2023-05-20 Outpatient [facility] [id number] [place] 01:42:25 [id number] [facility] 2023-05-16 Outpatient [facility] [id number] [place] 08:23:54 [id number] [facility] 2023-05-14 Outpatient [facility] [id number] [place] 05:15:59 [id number] [facility] 2023-05-13 Outpatient [facility] [id number] [place] 08:27:55 [id number] [facility] 2023-05-12 Outpatient [facility] [id number] [place] 06:07:14 [id number] [facility] 2023-05-11 Outpatient [facility] [id number] [place] 08:26:50 [id number] [facility] 2023-05-02 Outpatient [facility] [id number] [place] 15:12:58 [id number] [facility] 2023-04-27 Outpatient [facility] [id number] [place] 13:50:27 [id number] [facility] 2022-12-07 Outpatient [facility] [id number] [place] 10:45:03 [id number] [facility] 2022-11-19 Inpatient OTHER, [facility] [id number] [place] 23:26:00 ENTER -[id number] [facility] 2022-07-21 Outpatient [facility] [id number] [place] 08:41:07 [id number] [facility] 2022-07-20 Outpatient [facility] [id number] [place] 08:45:02 [id number] [facility] 2022-05-10 Outpatient DAI [facility] [id number] [place] 14:02:51 GENET [id number] [facility] 2022-05-06 [facility] [id number] [place] 03:08:22 [facility] [id number] [facility] 2022-05-05 Outpatient DAI, [facility] [id number] [place] 11:41:26 [facility] [id number] [facility] 2022-04-27 Outpatient [facility] [id number] [place] 15:04:49 [id number] [facility] 2022-03-16 Outpatient DAI, [facility] [id number] [place] 14:32:43 [facility] [id number] [facility] 2021-11-24 Outpatient DAI, [facility] [id number] [place] 15:00:42 [facility] 2021-06-01 Outpatient DAI, [facility] [id number] [place] 09:25:17 [facility] 2023-09-13 2023-09-13 Outpatient GC_GCBZW_Ka PRIV PRIV [id number] [facility] 00:00:00 00:00:00 diyala_S [id number] Medic al 2023-09-12 2023-09-12 Outpatient GC_GCBZW_Ka PRIV PRIV [id number] [facility] 00:00:00 00:00:00 diyala_S [id number] Medic al 2023-08-20 2023-08-20 Outpatient L_Pena [facility] [id number] [place] 00:00:00 00:00:00 1007 [facility] 2023-08-20 2023-08-20 Outpatient L_Pena [facility] [id number] [place] 00:00:00 00:00:00 1030 [facility] 2023-08-01 2023-08-01 Outpatient SARITA REINA [id number] Sarita 08:30:00 08:30:00 [id number] Seybol d 2023-07-28 2023-07-28 Outpatient L_Pena [facility] [id number] [place] 00:00:00 00:00:00 0914 Commun i ty [facility] Clin[facility] 2023-07-28 2023-07-28 Yaneth [facility] [place] [id number] [place] 00:00:00 00:00:00 Saturnino, Community Comm uni MSN, BUSINESS MANAGEMENT INTERN, Hospital - ty [facility]-C: [address] [place] [facility], Clinic s [address], [facility] [address], Ned [place] MSN, [facility]- [address] , Ph. 2023-07-16 2023-07-16 Outpatient L_Pena [facility] [id number] [place] 00:00:00 00:00:00 0902 Commun i ty Hospita [facility] 2023-06-21 2023-06-22 Inpatient [facility] [id number] [facility] 00:33:00 21:40:[address] 2023-06-20 2023-06-22 Inpatient U ALICIA, [facility] [id number] [facility] 19:33:00 16:40:00 COLIN 19 2023-06-20 2023-06-22 Outpatient Snehazac [facility] [id number] 19:33:00 16:40:[address] 2023-05-20 2023-05-20 Outpatient L_Pena [facility] [id number] [place] 00:00:00 00:00:00 0707 Commun i ty Hospita [facility] 2023-05-20 2023-05-20 [facility] [place] [facility] [place] 07 [place] 00:00:00 00:00:00 Jc [facility] [place], [place] padma BUSINESS MANAGEMENT INTERN, MSN, Hospital - ty [facility]-: [place] [address], CLINIC [address], [place] [address] , Ph. 2023-05-16 2023-05-16 Office BRIJESH Sellers [id number] [place] 13:00:00 14:12:51 Visit Genet VAIL [id number] Health [place] [id number] [facility] [id number] 2023-05-04 2023-05-04 Outpatient L_Pena [facility] [id number] [place] 00:00:00 00:00:00 0621 Commun i ty Hospita [facility] Clinics 2023-05-04 2023-05-04 Outpatient L_Pena [facility] [id number] [place] 00:00:00 00:00:00 0706 Commun i ty [facility] Clinics 2023-04-15 2023-04-15 Outpatient L_Pena [facility] [id number] [place] 00:00:00 00:00:00 0602 Commun i ty Hospita [facility] Clinics 2023-03-17 2023-03-17 Outpatient L_Pena [facility] [id number] [place] 00:00:00 00:00:00 0504 Commun i ty Hospita [facility] Clinics 2023-03-17 2023-03-17 [facility] [place] 04 [place] 00:00:00 00:00:00 Jennifer [place] uni MSN, BUSINESS MANAGEMENT INTERN, Hospital - ty INVESTMENT DIRECTOR-C: [address] [place] [facility], Clinic s [address], [facility] [address], [place], ESTELITA MSN, [facility]- [address] , Ph. 2023-03-11 2023-03-11 Outpatient L_Pena [facility] [id number] [place] 00:00:00 00:00:00 0428 Commun i ty [facility]osp[facility] Clinics 2023-02-07 2023-02-07 Outpatient L_Pena [facility] [id number] [place] 00:00:00 00:00:00 0327 Commun i ty [facility]osp[facility] Clinics 2023-02-07 2023-02-07 Outpatient L_Pena [facility] [id number] [place] 00:00:00 00:00:00 0328 Commun i ty [facility] Clinics 2023-02-07 2023-02-07 Kylie [facility] [place] 27 [place] 00:00:00 00:00:00 Jennifer Greene Comm uni BUSINESS MANAGEMENT INTERN, MSN, Hospital - ty INVESTMENT DIRECTOR-: [address], CLINIC [address], [place] [address] , Ph. 2023-02-04 2023-02-04 Outpatient L_Pena [facility] [id number] [place] 00:00:00 00:00:00 0324 Commun i ty Hospita [facility] Clinics 2023-01-19 2023-01-19 Kylie [facility] [place] [id number] [place] 00:00:00 00:00:00 Jennifer Greene APRN, MSN, Hospital - ty [facility] [address] [place] [address], [address], [place] [address] , Ph. 2023-01-11 2023-01-11 Outpatient L_Pena [facility] [id number] [place] 00:00:00 00:00:00 0306 Commun i ty Hospita [facility] Clinics 2023-01-11 2023-01-11 Outpatient L_Pena [facility] [id number] [place] 00:00:00 00:00:00 0308 Commun i ty Hospita [facility] Clinics 2023-01-05 2023-01-05 Caroline [facility] [place] [id number] [place] 00:00:00 00:00:00 Jennifer Gonzalez APRN-[facility] Hospital - ty C: [address] [facility], [address], [place] [address] , Ph. 2023-01-04 2023-01-04 Outpatient L_Pena [facility] [id number] [place] 00:00:00 00:00:00 0221 Commun i ty Hospita [facility] Clinics 2023-01-04 2023-01-04 Outpatient L_Pena [facility] [id number] [place] 00:00:00 00:00:00 0222 Commun i ty Hosp[facility] Clinics 2022-12-27 2022-12-27 Outpatient L_Pena [facility] [id number] [place] 00:00:00 00:00:00 0216 Commun i ty Hospita [facility] Clinics 2022-11-20 2022-11-20 Outpatient EL OTHER, [facility] [id number] [place] 00:22:00 00:22:00 ENTER -[id number] [facility] 2022-11-16 2022-11-16 Outpatient L_Jc [facility] [id number] [place] 00:00:00 00:00:00 0103 Commun i ty Hospita [facility] Clinics 2022-11-16 2022-11-16 [facility] [place] 00:00:00 00:00:00 Jc [facility] [place], [place] padma GUILLORY, MSN, [facility]: [facility] [address] [place] [address], [address], [place] [address] , Ph. 2022-11-09 2022-11-09 Outpatient L_Jc [facility] [id number] [place] 00:00:00 00:00:00 1227 Commun i ty Hospita [facility] 2022-11-09 2022-11-09 [facility] [place] [id number] [place] 00:00:00 00:00:00 Jc [facility] [place], [place] padma GUILLORY, MSN, [facility]: [facility] [address] [place] [address], [address], [place] [address] , Ph. 2022-10-15 2022-10-15 Outpatient L_Jc [facility] [id number] [place] 00:00:00 00:00:00 1202 Commun i ty Hospita l Clinics 2022-10-15 2022-10-15 Outpatient L_Pena [facility] [id number] [place] 00:00:00 00:00:00 1207 Commun i ty Hospita [facility] Clinics 2022-10-15 2022-10-15 Outpatient L_Pena [facility] [id number] [place] 00:00:00 00:00:00 1208 Commun i ty Hospita [facility] Clinics 2022-10-15 2022-10-15 [facility] [place] [facility] [place] [id number] [place] 00:00:00 00:00:00 Jc [facility] PASTORA, MSN, [facility]: [address], CL[address]IC [address] [place] [address] , Ph. 2022-07-29 2022-07-29 Outpatient L_Jc [facility] [id number] [place] 00:00:00 00:00:00 0915 Commun i ty Hospita [facility] 2022-07-29 2022-07-29 Kylie [facility] [place] [id number] [place] 00:00:00 00:00:00 Jc [facility] PASTORA, MSN, [facility]: [facility] [address] [place] [address], CLINIC [address] [place] [address] , Ph. 2022-07-29 2022-07-29 Outpatient Kylie rGeene [facility] 20e [id number] 00:00:00 00:00:00 [id number] 2022-05-31 2022-05-31 Outpatient L_Jc [facility] [id number] [place] 10:02:00 10:02:00 0718 Commun i ty Hospita [facility] 2022-05-31 2022-05-31 [facility] [place] [id number] [place] 00:00:00 00:00:00 Jc [facility] PASTORA, MSN, [facility]: [facility] [address] [place] [address], CLINIC [address] [place] [address] , Ph. 2022-05-31 2022-05-31 Outpatient Kylie Greene [facility] [id number] 00:00:00 00:00:00 [id number] 2022-05-28 2022-05-28 Outpatient L_Jc [facility] [id number] [place] 11:58:00 11:58:00 0715 Commun i ty Hospita l Clinics 2022-05-10 2022-05-10 Office BRIJESH Sellers [facility] 4 [id number] [place] 13:30:00 14:48:01 Visit Genet [id number] H ealt [id number] 2022-03-10 2022-03-10 Outpatient WATERS_S [facility] 2021 [place] 11:31:00 11:31:00 0427 Commun i ty Hospita l Clinics 2022-03-10 2022-03-10 Caroline [facility] [place] 00:00:00 00:00:00 Carlos [facility] mmuni BUSINESS MANAGEMENT INTERN-INVESTMENT DIRECTOR-B [facility] C: [address] [facility], [address], [place] [address] , Ph. 2022-03-10 2022-03-10 Outpatient Carlos, [facility] [id number] 00:00:00 00:00:00 Caroline [id number] 2022-03-10 2022-03-10 Outpatient Carlos, [facility] [facility] [id number] 00:00:00 00:00:00 Caroline [id number] 2022-03-10 2022-03-10 Outpatient Carlos, [facility] [id number] 00:00:00 00:00:00 Caroline [id number] 2022-02-05 2022-02-05 Outpatient MING CORRALES [facility] B [id number] [facility] 15:00:00 15:38:00 MING RICHMOND pradeep [facility] 2022-02-05 2022-02-05 Office Bart NCAMILCAR RENSSELAER [id number] [facility] 15:00:00 15:38:00 Visit Ming NEVAREZ [id number] it y of [facility] 4.2.7.2.686 [facility] [id number] [facility] [address] 2022-02-05 2022-02-05 Outpatient R MING RICHMOND [facility] B [id number] [facility] 15:00:00 15:38:00 MING RICHMOND itpradeep [facility] 2022-02-05 2022-02-05 Outpatient R MING RICHMOND [facility] B [id number] [facility] 15:00[facility]00 [facility]38[facility] 2022-02-05 2022-02-05 Orders Doctor MARINO [id number] Univers 00:00:00 00:00:00 Only Unassigned, BROOK [id number] [facility]y of [facility] 4.2.7.2.686 Eddie [id number] [facility] [address] 2022-01-05 2022-01-06 Outpatient EM Ella, HCAPM [id number] [facility] 18:35:00 13:30:00 Meaghan 31 [facility] 2022-01-04 2022-01-04 Outpatient R RADIOLOGY [facility] [id number] Univers 15:49:33 23:59:00 ity of [facility] 2022-01-04 2022-01-04 Hospital Radiology [facility] [id number] Univers 15:30:00 23:59:00 Encounter ANITRA [id number] ity [facility] 4.2.7.2.686 [place] [id number] [facility] [address] 2021-12-02 2021-12-02 Outpatient WATERS_S [facility] [id number] [place] 04:54:00 04:54:00 [facility]119 [facility] 2021-11-30 2021-11-30 Outpatient WATERS_S [facility] [id number] [place] 06:06:00 06:06:00 0117 [facility] 2021-11-30 2021-11-30 [facility] [place] 00:00:00 00:00:00 [facility] BUSINESS MANAGEMENT INTERN-CARDIAC SONOGRAPHER-C: Hospital - ty [address], [place] [address] , Ph. 2021-11-30 2021-11-30 Outpatient Post [facility] [id number] [id number] 00:00:00 00:00:00 Sofia [id number] 2021-11-27 2021-11-27 Outpatient WATERS_S [facility] 2021 [place] 09:10:00 09:10:00 0114 [facility] 2021-08-28 2021-08-28 Outpatient WATERS_S [facility] [id number] [place] 09:23:00 09:23:00 1015 [facility] 2021-08-26 2021-08-26 Outpatient WATERS_S [facility] [id number] [place] 05:22:00 05:22:00 1013 [facility] 2021-08-26 2021-08-26 Outpatient [facility] [id number] 00:00:00 00:00:00 Sofia [id number] 2021-08-26 2021-08-26 [facility] [place] 13 [place] 00:00:00 00:00:00 [facility] 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 2021-05-27 2021-05-27 Outpatient WATERS_S [facility] [id number] [place] 11:24:00 11:24:00 0714 [facility] 2021-05-21 2021-05-21 Outpatient WATERS_S [facility] [id number] [place] 12:01:00 12:01:00 0708 [facility] 2021-05-20 2021-05-20 Outpatient WATERS_S [facility] [id number]- 2020 [place] 04:34:00 04:34:00 0707 [facility] 2021-03-26 2021-03-26 Outpatient WATERS_S [facility] [id number] [place] 05:36:00 05:36:00 0513 Commun i [facility] 2021-03-25 2021-03-25 Outpatient WATERS_S [facility] [id number] [place] 05:54:00 05:54:00 0512 [facility] Results Test Description Test Time Test Comments Results Result Comments Source CHEMISTRY 2023-06-22 08:52:00 Test Item Value Reference Range Interpretation Comme nts Glucose Lvl (test code = Glucose Lvl) 83 70-99 [facility]iz[facility]otMDNQMVQCG8041-61-06 08:52:00 Test Item Value Reference Range Interpretation Comments BUN (test code = BUN) 6 7-22 [facility] CenterPhkfhllMWQJPXIZQ9983-40-07 08:52:00 Test Item Value Reference Range Interpretation Comments Creatinine Lvl (test code = Creatinine 0.75 0.50-1.40 Lvl) [facility]SHYSXVUXU3602-84-27 08:52:00 Test Item Value Reference Range Interpretation Comments Sodium Lvl (test code = Sodium Lvl) 141 135-145 [facility]QmngcyiARWYQMSDP3733-71-18 08:52:00 Test Item Value Reference Range Interpretation Comments Chloride Lvl (test code = Chloride Lvl) 110 95-109 [facility]WidmvtfFQKZCMKAC5625-83-06 08:52:00 Test Item Value Reference Range Interpretation Comments CO2 (test code = CO2) 22 24-32 [facility] TexasScamibmODEOUPJCR4846-65-89 08:52:00 Test Item Value Reference Range Interpretation Comments AGAP (test code = AGAP) 13.4 10.0-20.0 [facility]EmswaqhJJJIWAPNA4010-65-47 08:52:00 Test Item Value Reference Range Interpretation Comments Calcium Lvl (test code = Calcium Lvl) 8.6 8.5-10.5 [facility]XzaxvcdTBHOPUVXA3847-56-02 08:52:00 Test Item Value Reference Range Interpretation Comments Potassium Lvl (test code = Potassium 4.4 3.5-5.1 Lvl) [facility] TexasNuvkjakJEPPDVTAO3976-80-90 08:52:00 Test Item Value Reference Range Interpretation Comments eGFR (test code = eGFR) 117 [facility] TexasSfyokhcRUGUIPYBY7755-04-73 08:52:00 Test Item Value Reference Range Interpretation Comments Magnesium Lvl (test code = Magnesium 2.2 1.8-2.4 Lvl) [facility]inteJgsbkecIHDNOVZUDU8361-56-64 08:52:00 Test Item Value Reference Range Interpretation Comments WBC (test code = WBC) 7.1 3.7-10.4 [place] 602453-08-09 08:52:00 Test Item Value Reference Range Interpretation Comments RBC (test code = RBC) 4.01 4.20-5.40 [place] 602453-08-09 08:52:00 Test Item Value Reference Range Interpretation Comments Hgb (test code = Hgb) 12.1 12.0-16.0 [place] [address]-08-09 08:52:00 Test Item Value Reference Range Interpretation Comments Hct (test code = Hct) 35.9 36.0-48.0 [place] [address]-08-09 08:52:00 Test Item Value Reference Range Interpretation Comments MCV (test code = MCV) 89.5 80.0-98.0 [facility]intePmjlgiaVFGCMWQHKI6971-34-90 08:52:00 Test Item Value Reference Range Interpretation Comments MCH (test code = MCH) 30.3 pg 27.0-31.0 [facility] PointeRqrznihZACYIUCVSC9855-36-07 08:52:00 Test Item Value Reference Range Interpretation Comments MCHC (test code = MCHC) 33.8 32.0-36.0 [facility] PointeGyxujwuHPMVOOHRAY4227-01-28 08:52:00 Test Item Value Reference Range Interpretation Comments RDW (test code = RDW) 13.0 11.5-14.5 [facility] PointeTbwnipmXNYMWMZROJ8032-86-29 08:52:00 Test Item Value Reference Range Interpretation Comments Platelet (test code = Platelet) 204 133-450 [facility] PointeUnnqyskMCPZTGYPIH6213-82-32 08:52:00 Test Item Value Reference Range Interpretation Comments MPV (test code = MPV) 8.8 7.4-10.4 [place] 602453-08-09 08:52:00 Test Item Value Reference Range Interpretation Comments Segs (test code = Segs) 61.5 45.0-75.0 [facility] PointeUhheaebGSPIETVNPQ8030-82-44 08:52:00 Test Item Value Reference Range Interpretation Comments Lymphocytes (test code = Lymphocytes) 25.6 20.0-40.0 [facility] PointeTrdhbthOOJICBIGXI5209-19-41 08:52:00 Test Item Value Reference Range Interpretation Comments Monocytes (test code = Monocytes) 8.0 2.0-12.0 [facility] PointeKdklkccNZROUPZOEZ1900-65-32 08:52:00 Test Item Value Reference Range Interpretation Comments Eosinophils (test code = Eosinophils) 4.4 <=4.0 [place] 602453-08-09 08:52:00 Test Item Value Reference Range Interpretation Comments Basophils (test code = Basophils) 0.5 <=1.0 [place] 602453-08-09 08:52:00 Test Item Value Reference Range Interpretation Comments Neutrophils # (test code = Neutrophils 4.4 1.5-8.1 #) [facility] PointeKaolhwhOAWGBUCOZJ2732-32-42 08:52:00 Test Item Value Reference Range Interpretation Comments Lymphocytes # (test code = Lymphocytes 1.8 1.0-5.5 #) [facility] CenterQqqibgqJCNTPKDGPR3791-79-36 08:52:00 Test Item Value Reference Range Interpretation Comments Monocytes # (test code = Monocytes #) 0.6 <=0.8 [facility] CenterNymegooMOOAUCFQDH6485-52-06 08:52:00 Test Item Value Reference Range Interpretation Comments Eosinophils # (test code = Eosinophils 0.3 <=0.5 #) [facility] CenterWgxqmriCKOUDGMRW2155-00-23 00:42:00 Test Item Value Reference Range Interpretation Comments HS Troponin I 1 Hr (test code = HS 3 Troponin I 1 Hr) [facility] CenterCtifvavQRLZXDDWZ0465-82-51 00:42:00 Test Item Value Reference Range Interpretation Comments HS Troponin I 0 to 1 Hour Delta (test -1 code = HS Troponin I 0 to 1 Hour Delta) [facility] CenterSgzynreYYTPTRRKR8391-76-35 23:25:00 Test Item Value Reference Range Interpretation Comments HS Troponin I Baseline (test code = HS 4 Troponin I Baseline) [facility]annCIPROFLOXACIN:SUSC:PT:ISOLATE:ORDQN:DNM4961-61-32 20:27:00 Test Item Value Reference Range Interpretation Comments Gram Stain Report Rare Wbc'S; Many Gram (test code = Gram Positive Cocci In Pairs Stain Report) [facility] HermannCIPROFLOXACIN:SUSC:PT:ISOLATE:ORDQN:[id number] 20:27:00 Test Item Value Reference Range Interpretation Comments Culture: Many Methicillin Resistant Aspirate/Body Staphylococcus aureus Fluid/Tissue (test code = Culture: Aspirate/Body Fluid/Tissue) [facility]annCIPROFLOXACIN:SUSC:PT:ISOLATE:ORDQN:PNS3392-14-72 20:27:00 Test Item Value Reference Range Interpretation Comments Methicillin Resistant Methicillin Resistant Staphylococcus aureus Staphylococcus aureus (test code = Methicillin Resistant Staphylococcus aureus) [facility] CenterannAFB Aaqmv8257-78-79 20:27:00 Test Item Value Reference Range Interpretation Comments AFB Stain (test code = No Acid Fast Bacilli AFB Stain) Seen On Smear [facility] CenterannCulture: AFB w/Lugmb6063-95-70 20:27:00 Test Item Value Reference Range Interpretation Comments Culture: AFB w/Smear (test Culture in Process code = Culture: AFB w/Smear) [facility] Bantjpiux0439-49-34 20:27:00 Test Item Value Reference Range Interpretation Comments Culture: Anaerobic No Anaerobes Isolated (test code = Culture: After 3 Days Anaerobic) [facility] Gkdat0946-[facility] 20:27:00 Test Item Value Reference Range Interpretation Comments Fungal Smear (test No Yeast Or Fungal code = Fungal Smear) Elements Seen [facility]: Fungal w/Qeugu7299-68-51 20:27:00 Test Item Value Reference Range Interpretation Comments Culture: Fungal w/Smear Culture In Progress (test code = Culture: Fungal w/Smear) [facility] TexasFasbwjlENJNFUMNI6546-12-94 16:58:00 Test Item Value Reference Range Interpretation Comments U Amph Scr (test code Negative *NA*(06/21/23 = U Amph Scr) 11:58 AM) [facility] TexasOeatjddHNPTGNBBW6623-64-60 16:58:00 Test Item Value Reference Range Interpretation Comments U Tiffani Scr (test code Negative *NA*(06/21/23 = U Tiffani Scr) 11:58 AM) [facility] TexasVugvxgsPXLXYOACS6510-51-92 16:58:00 Test Item Value Reference Range Interpretation Comments U Benzodiaz Scr (test Negative *NA*(06/21/23 code = U Benzodiaz Scr) 11:58 AM) [facility] TexasNztwlydBOROLOGBB0384-98-53 16:58:00 Test Item Value Reference Range Interpretation Comments U Cocaine Scr (test Negative *NA*(06/21/23 code = U Cocaine Scr) 11:58 AM) [facility] TexasBseklnhLYNYOEZWO6474-50-43 16:58:00 Test Item Value Reference Range Interpretation Comments U Cannab Scr (test Negative *NA*(06/21/23 code = U Cannab Scr) 11:58 AM) [facility] TexasRhjltilHRYOYASNM0092-45-81 16:58:00 Test Item Value Reference Range Interpretation Comments U Opiate Scr (test Negative *NA*(06/21/23 code = U Opiate Scr) 11:58 AM) [facility] TexasAzvvhkvXEUHKHNNK0304-93-59 16:58:00 Test Item Value Reference Range Interpretation Comments U Phencyclidine Scr (test Negative *NA*(06/21/23 code = U Phencyclidine 11:58 AM) Scr) [facility] TexasWodqiplHKGQPRZYA8667-66-17 16:58:00 Test Item Value Reference Range Interpretation Comments U Methadone Scr (test Negative *NA*(06/21/23 code = U Methadone Scr) 11:58 AM) [facility] TexasHmfklnsCEFOSDJWZ1939-20-03 16:58:00 Test Item Value Reference Range Interpretation Comments U Propoxyph Scr (test Negative *NA*(06/21/23 code = U Propoxyph Scr) 11:58 AM) [facility] TexasKixxqovDMYSZRRFB6241-30-36 16:58:00 Test Item Value Reference Range Interpretation Comments UDS Note (test code = See Note 2(06/21/23 11:58 UDS Note) AM) [facility] TexasOrlkkjjQXJERVBPT1548-10-50 15:53:00 Test Item Value Reference Range Interpretation Comments TSH (test code = TSH) 1.200 0.360-3.740 [facility] TexasGahsmolZBEWNVHOZ1181-69-89 11:39:00 Test Item Value Reference Range Interpretation Comments HS Troponin I (test code = HS Troponin 3 I) [facility] TexasUsiuwgmHGTSELBJZ4233-64-50 05:41:00 Test Item Value Reference Range Interpretation Comments Total Protein (test code = Total 7.0 6.4-8.4 Protein) [facility] TexasHycqtngDKDWWLDEO6894-16-21 05:41:00 Test Item Value Reference Range Interpretation Comments Albumin Lvl (test code = Albumin Lvl) 3.6 3.5-5.0 [facility] TexasDhomcpxBMDSLTVTW6764-59-80 05:41:00 Test Item Value Reference Range Interpretation Comments ALT (test code = ALT) 21 <=65 [facility] TexasXnilrsnYOUBBIOYG8912-28-32 05:41:00 Test Item Value Reference Range Interpretation Comments AST (test code = AST) 16 <=37 [facility] TexasDeloumkDVZYBNEOY1403-47-32 05:41:00 Test Item Value Reference Range Interpretation Comments Alk Phos (test code = Alk Phos) 62 39-136 [facility] TexasXnldvhiNKBSDMQUV6046-99-48 05:41:00 Test Item Value Reference Range Interpretation Comments Bili Total (test code = Bili Total) 0.3 0.2-1.3 [facility] TexasKfsnsrlQPOBECEBV3122-24-21 05:41:00 Test Item Value Reference Range Interpretation Comments B/C Ratio (test code = B/C Ratio) 12 1 6-25 [facility] TexasXyaptwcZTJDAATIN9838-54-77 05:41:00 Test Item Value Reference Range Interpretation Comments Globulin (test code = Globulin) 3.4 2.7-4.2 [facility] HospitalQybfeloCNJUEDJQO3430-04-16 05:41:00 Test Item Value Reference Range Interpretation Comments A/G Ratio (test code = A/G Ratio) 1.1 1 0.7-1.6 [facility]ocjNQNDIXMYLP3478-74-70 05:41:00 Test Item Value Reference Range Interpretation Comments PT (test code = PT) 13.8 s 12.0-14.7 [facility] PointeWudmuxhCPGWGQVROP2381-10-05 05:41:00 Test Item Value Reference Range Interpretation Comments INR (test code = INR) 1.06 1 0.85-1.17 [facility], AEROBIC AND ANAEROBIC W/GRAM BAXYM4306-12-79 17:09:04 Test Item Value Reference Range Interpretation Comments Aerobic Culture SPECIMEN A CULTURE, RO UTINE ? (test code = 634-6) NUMBER: ? [id number] ? SPECIMEN NUMBER : [id number] SPECI MEN COMMENT: RT LEG SOURCE: LEG REP ORT STATUS: FINAL D IRECT GRAM STAIN: ? RARE GRAM POS ITIVE COCCI ? N O WBCs SEEN ISOLA TE NUMBER 1: ? ORGANISM: ? ? ?05/18/2023 ABU NDANT STAPHYLOCOCCUS SPECIES ? IDENTIFICATION: ? ? ?05/19/2023 METHICILLIN RESISTANT STAPHYLOCOCCUS AUREUS (MRSA) ? MRSA ? -CLIN DAMYCIN ? ? ?RESISTANT ?>4ERYTHROMYCIN ? ? RESISTANT ?>4OXACILLIN ?RESISTANT ?2RIFAMPIN ? SENSITIVE ?<=1TETRACYCLIN E ? ? RESISTANT ?>8TRIMETH/SULF A ? ?SENSITIVE ?*1 ?Note 1: ? ?<=0.5/9.5VANCO MYCIN ? ? ? SENSITIVE ?1 ? ?NOTE: ?NUMBERS DISPLAYED REPRE SENT MINIMUM INHIBIT ORY ?CONCENTRATION (THOMPOSN) WHICH IS EXPRES SED IN MCG/ML.Testi ng Performed At:KENY L: ?[facility], [address] [place], [place] [address]Mepidbzjuj Director: Mehrdad Alan M.D., CLIA #: [id number] Lab Interpretation Abnormal (test code = 78133-0) [facility] function kbvpx2660-08-47 09:39:12 Test Item Value Reference Range Interpretation Comments PROTEIN, TOTAL (test 7.1 See_Comment [Autom ated message] code = 2885-2) The system [facility] generated this result transmitted ref erence range: 6.1 - 8. 3 G/DL. The reference r keila was not used to int erpret this result as normal/abnormal . ALBUMIN (test code = 4.6 See_Comment [Autom ated message] 85985-0) The system [facility] h generated this result transmitted ref erence range: 3.5 - 5. 2 G/DL. The reference r keila was not used to int erpret this result as normal/abnormal . BILIRUBIN, TOTAL (test 0.4 See_Comment [Aut omated message] code = 1975-2) The system [facility] generated this result transmitted ref erence range: <=1.2 MG /DL. The reference range was not used to interpr et this result as normal/abnormal . BILIRUBIN, DIRECT (test 0.1 See_Comment [Au tomated message] code = 1968-7) The system [facility] generated this result transmitted ref erence range: 0.0 - 0. 3 MG/DL. The reference r keila was not used to int erpret this result as normal/abnormal . ALKALINE PHOSPHATASE 73 U/L 40-116 (test code = 6768-6) AST (test code = 1920-8) 19 U/L 9-40 ALT (test code = 1742-6) 20 U/L 5-40 Deonna ting Performed At:[facility]: ?[facility], [address], [place] [address]Jzeinha ory Director: Mehrdad Alan M.D., DELTAIA #: [id number] [facility] and oyoxonjanmwk7979-18-98 06:49:22 Test Item Value Reference Range Interpretation Comments WHITE BLOOD CELL COUNT 8.7 See_Comment [Aut omated message] (test code = 6690-2) The [facility] tem which generated this result transmitted ref erence range: 3.5 - 11 .0 K/UL. The refer ence range was not u sed to interpret this result as normal/abnor mal. RED BLOOD CELL COUNT 4.61 See_Comment [Autom ated message] (test code = 789-8) The syst em which generated this result transmitted ref erence range: 3.80 - 5 .40 M/UL. The refer ence range was not u sed to interpret this result as normal/abnor mal. HEMOGLOBIN (test code = 13.8 See_Comment [Au tomated message] 718-7) The system [employer] generated this result transmitted ref erence range: 11.5 - 1 5.5 G/DL. The refer ence range was not u sed to interpret this result as normal/abnor mal. HEMATOCRIT (test code = 41.4 % 34.0-45.0 4544-3) MCV (test code = 787-2) 89.8 fL 80.0-99.0 MCH (test code = 785-6) 29.9 PG 25.0-33.0 MCHC (test code = 786-4) 33.3 See_Comment [A utomated message] The system [employer] generated this result transmitted ref erence range: 31.0 - 3 6.0 G/DL. The refer ence range was not u sed to interpret this result as normal/abnor mal. RDW (test code = 788-0) 12.4 % NEUTROPHILS (test code = 66.3 % 770-8) LYMPHOCYTES (test code = 22.5 % 736-9) MONOCYTES (test code = 7.7 % 5905-5) EOSINOPHILS (test code = 3.1 % 713-8) BASOPHILS (test code = 0.2 % 706-2) Immature Granulocytes 0.02 % See_Comment [Auto mated message] (test code = 05756-4) The sy stem which generated this result transmitted ref erence range: 0.00 - 0 .10 K/UL. The refer ence range was not u sed to interpret this result as normal/abnor mal. NUCLEATED RBC (test code 0.0 See_Comment [A utomated message] = 80862-1) The system [employer] generated this result transmitted ref erence range: 0.0 /100 WBC'S. The reference r keila was not used to interpret this result as normal/abnor mal. PLATELET COUNT (test 238 See_Comment [Autom ated message] code = 777-3) The system [employer] ch generated this result transmitted ref erence range: 130 - 40 0 K/UL. The reference r keila was not used to interpret this result as normal/abnor mal. ABSOLUTE NEUTROPHILS 5.74 See_Comment [Autom ated message] (test code = 751-8) The syst em which generated this result transmitted ref erence range: 1.50 - 7 .50 K/UL. The refer ence range was not u sed to interpret this result as normal/abnor mal. ABSOLUTE LYMPHOCYTES 1.95 See_Comment [Autom ated message] (test code = 732-8) The syst em which generated this result transmitted ref erence range: 1.00 - 4 .00 K/UL. The refer ence range was not u sed to interpret this result as normal/abnor mal. ABSOLUTE MONOCYTES (test 0.67 See_Comment [A utomated message] code = 742-7) The system Dr. Tariff generated this result transmitted ref erence range: 0.20 - 1 .00 K/UL. The refer ence range was not u sed to interpret this result as normal/abnor mal. ABSOLUTE EOSINOPHILS 0.27 See_Comment [Autom ated message] (test code = 711-2) The syst em which generated this result transmitted ref erence range: 0.00 - 0 .50 K/UL. The refer ence range was not u sed to interpret this result as normal/abnor mal. ABSOLUTE BASOPHILS (test 0.02 See_Comment [A utomated message] code = 704-7) The system [employer] generated this result transmitted ref erence range: 0.00 - 0 .20 K/UL. The refer ence range was not u sed to interpret this result as normal/abnor mal. ABSOLUTE NUCLEATED RBC 0.00 K/UL Testi ng Performed (test code = 06764-5) At:[facility] : ?[facility], [address] [place] [address], [facility], [place] [address]Hbkcokjoor Director: Mehrdad Alan M.D., CLIA #: [id number] [facility], pyzlht1411-69-61 09:19:00 Test Item Value Reference Range Interpretation Comments Strep (test code = Strep) positive [facility] Ag [Presence] in Respiratory specimen by Rapid xbhguinyteg9792-38-79 14:54:00 Test Item Value Reference Range Interpretation Comments SARS CoV 2 (test code = SARS CoV 2) negative [facility] (A+B)2022-11-09 14:49:00 Test Item Value Reference Range Interpretation Comments FLU A (test code = FLU A) negative FLU B (test code = FLU B) negative [facility] ([facility]OVID-19) Ag [Presence] in Respiratory specimen by Rapid mtmeqttsoud9778-53-23 12:45:00 Test Item Value Reference Range Interpretation Comments SARS CoV 2 (test code = SARS CoV 2) negative [facility] (A+B)2022-10-15 12:45:00 Test Item Value Reference Range Interpretation Comments FLU A (test code = FLU A) negative FLU B (test code = FLU B) negative [facility] st[facility] group A, xlleqn4215-76-64 12:45:00 Test Item Value Reference Range Interpretation Comments Strep (test code = Strep) positive [facility] HospitalUrinalysis macro (dipstick) panel - Urine 2022-07-29 13:55:00 Test Item Value Reference Range Interpretation Comments Leukocytes (test code = Moderate Leukocytes) Nitrite (test code = positive Nitrite) Urobilinogen (test code = .2 Urobilinogen) Protein (test code = Trace Protein) pH (test code = pH) 6.0 Blood (test code = Blood) Hemolyzed: Trace Specific [place] (test code 1.030 = Specific [place]) Ketone (test code = Ketone) Trace Bilirubin (test code = Negative Bilirubin) Glucose (test code = Negative Glucose) Appearance (test code = Cloudy Appearance) Color (test code = Color) Dark Yellow [facility]ics[facility]regnancy test, [id number] 13:52:00 Test Item Value Reference Range Interpretation Comments HCG (test code = HCG) negative [facility], [id number] 10:51:00 Test Item Value Reference Range Interpretation Comments Strep (test code = Strep) [facility]10 10:51:00 Test Item Value Reference Range Interpretation Comments FLU A (test code = FLU A) negative FLU B (test code = FLU B) [facility], [id number] 10:51:00 Test Item Value Reference Range Interpretation Comments Strep (test code = Strep) negative [facility]2022-03-10 10:51:00 Test Item Value Reference Range Interpretation Comments FLU A (test code = FLU A) negative FLU B (test code = FLU B) negative [facility]) Ag [Presence] in Respiratory specimen by Rapid [id number] 10:50:00 Test Item Value Reference Range Interpretation Comments SARS CoV 2 (test code = SARS CoV 2) negative [facility]CoV[facility] (COVID-19) Ag [Presence] in Respiratory specimen by Rapid [id number] 10:50:00 Test Item Value Reference Range Interpretation Comments SARS CoV 2 (test code = SARS CoV 2) negative [facility] ClinicsPOCT [id number] 20:43:00 Test Item Value Reference Range Interpretation Comments POCT PREG (test code = 1605) Negative On board controls acceptable with C Yes Line (test code = 3574) POCT PREG LOT # (test code = 3575) POCT PREG TEST DATE (test code = 3576) [facility] Test Item Value Reference Range Interpretation Comments SURG (test code = SURG) RUN DATE: 01/12/22 [facility] [place] - LAB PAGE 1 RUN TIME: 1502 Specimen Inquiry RUN USER: INTERFACE PATIENT: PRSAHANTH GONZALEZ LOC: MICHAEL U #: [id number] AGE/SX: 16/ ROOM: RE01/06/22[facility] DR: Meaghan Jaramillo : 03 BED: DIS: STATUS: DEP SDC TLOC: SPEC #: [id number] RECD: 01/06/22 STATUS: CHOCO PETER #: [id number] ALY: 01/05/22-[address]: Anderson Granger MD ENTERED: 01/06/22 SP TYPE: SURG OTHR DR: No Primary or Family Physician Self ReferredORDERED: SURG PATH LVL 4 COPIES TO: No Primary or Family Physician [place] [address] [place] [address] [address] HISTOLOGY: TISSUE ID BLK PCS RUDY LEV PROCEDURE DISPOSITION ____ ___ ___ ___ OVARY, NOS A 1 PROCEDURES: SURG PATH LVL 4 (01/06/22-175) TISSUES: A. OVARIAN - LEFT OVARIAN CYST CPT CODES CPT CODE(S): 50019 , , , , , , FINAL DIAGNOSIS Ovary, left, oophorectomy: OVARIAN STROMA WITH FOLLICULAR CYSTS AND SIMPLE SEROUS CYSTS GROSS DESCRIPTION Left ovarian cyst. The specimen consists of several pieces of red-mauro tissue measuring in aggregate 3.5 x 1.8 x 0.8 cm. Three of these fragments have a cyst-like component measuring 0.5 cm, 0.5 cm and 0.6 cm. The tissue is sectioned and entirely submitted as A1 (cyst included) and A2. /tc/pdb Grossing performed at [facility] Pathology, [address] [place] [address], [address], [place] [address]. [employer] Social [employer] Teacher: Homer Robertson M.D. CONTINUED ON NEXT PAGE RUN DATE: 01/12/[address] [facility] PAGE 2 RUN TIME: 1502 Specimen Inquiry RUN USER: INTERFACE SPEC #: [id number] PATIENT: PRASHANTH GONZALEZ #[id number] (Continued) MICROSCOPIC DESCRIPTION Left ovarian cyst. Sections demonstrate segments of ovarian stroma with simple ovarian serous cysts and follicular cysts. No dysplasia or malignancy is identified. Signed SIGNATURE ON FILE [place] 01/12/22 1501 END OF REPORT COVID 19 INHOUSE [id number] 22:09:00 Test Item Value Reference Range Interpretation Comments COVID 19 INHOUSE AG NEGATIVE Negative Per clau ramírez, (test code = negative result s should [id number]) be treated aspr esumptive and, if inconsi stent with clinical signs andsymptoms or necessary for patient man agement, should betested with an alternative mol ecular assay. Negative resultsdo not preclude SA RS-CoV-2 infection and s hould not be usedas the s ole basis for patient man agement decisions. Nega tive results should be considered in t he context of apatient's r ecent exposures, hist ory, presence of cli nicalsigns and symptoms co nsistent with COVID-19. - US TRANSVAGINAL NON [id number] 20:04:00 [facility] : 2005 Sex: F Name: PRASHANTH GONZALEZ [facility] : 2005 Age/S: 16 / F [id number] [address] [place] Unit #: [id number]: [place] [address] Phys: Anderson Granger MD Acct: [id number] Dis Date: Status: REG ER PHONE #: [phone] Exam Date: 01/05/20221934 FAX #: Reason: r/o torsion EXAMS: CPT: [id number] [place] [address] PELVIC TRANSVAGINAL ULTRASOUND Location of dictation: B2 CLINICAL HISTORY:r/o torsion, left pelvic pain, LMP 12/25/2021 TECHNIQUE: Multiple high resolution images were obtained through the pelvis using transvaginal approach. COMPARISON: None FINDINGS: The uterus is of normal size, shape,and echogenicity. It measures 8.2 x 4.2 x 5 cm. The endometrial stripe is of normal thickness at 6 mm. No fibroids are seen. The cervix is unremarkable and closed. Color and spectral flow was seen to both ovaries. No adnexal mass, free fluid or fluid collection seen.The right ovary measures 5 x 2.4 x2.8 with small follicles The left ovary measures 6 x 4 x 3.8 cm and occupied by a large cyst measuring 5 cm. There is a smaller cyst centrally with a hyperechoic component. IMPRESSION: 1. Large predominantly simple left ovarian cyst with a smaller cyst centrally and adjacent hyperechoic component. Follow-up recommended in 4-6 weeks preferably in the preovulatory phase of patient's menstrual cycle. 2.Unremarkable right ovary and uterus. at 2004 Reported and signed by: Kamala Majano M.D. CC: Anderson Granger MD; Carol ASCENCIO Technologist: Christo Brandon Trnscb Date/Time: 01/05/2022 (2003) EdgardPXC PAGE 1 Signed Report Name: PRASHANTH GONZALEZ : 2005 Age/S: 16 / F [id number] [address] [place] Unit #: [id number] Loc: Estelita [place] [address] Phys: Anderson rGanger MD Acct: [id number] Dis Date: Status: REG ER PHONE #: [phone] Exam Date: 01/05/2022 1935 FAX #: Reason: r/o torsion EXAMS: CPT: [id number] [place] [address] () Orig Print D/T: S: 01/05/2022 (2006) Probe: [id number] PAGE 2 Signed ReportUA RFLX MICR CULT IF INDICATED 2022-01-05 19:52:00 Test Item Value Reference Range Interpretation Comments UA COLOR (test code = YELLOW discript YEL/STRAW COLU) UA APPEARANCE (test code CLEAR discript CLEAR = APPU) UA GLUCOSE DIPSTICK (test NEGATIVE mg/dL NEG code = DGLUU) UA BILIRUBIN DIPSTICK NEGATIVE mg/dL NEG (test code = BILU) UA KETONE DIPSTICK (test NEGATIVE mg/dL NEG code = KETU) UA SPECIFIC GRAVITY (test 1.010 SG 1.005-1.030 code = SGU) UA BLOOD DIPSTICK (test 3+ mg/DL NEG A code = OZIEL) UA PH DIPSTICK (test code 6.5 pH UNITS 5.0-7.0 = SARA) UA PROTEIN DIPSTICK (test NEGATIVE mg/dL NEG code = PROU) UA UROBILINIOGEN DIPSTICK 0.2 mg/dL <2.0 (test code = URO) UA NITRITE DIPSTICK (test NEGATIVE SCREEN NEG code = ROLDAN) UA LEUKOCYTE ESTERASE NEGATIVE Leuk/mcL NEGATIVE DIPSTICK (test code = LEUU) UA CULTURE NEEDED? (test NO, WBC<10 Criteria Culture CHK code = UACULT) UA WBC (test code = WBCU) 3-5 #WBC/HPF 0-3 A UA RBC (test code = RBCU) NONE SEEN #RBC/HPF 0-3 UA BACTERIA (test code = TRACE /HPF NONE-TRACE BACU) UA SQUAMOUS CELLS (test TRACE /HPF NONE code = SQU) Indication for culture: Dysuria/FrequencySOURCE OF URINE: CLEAN CATCHUR HCG QUAL 2022-01-05 19:52:00 Test Item Value Reference Range Interpretation Comments UR HCG QUAL (test code = HCGQLU) NEGATIVE NEGATIVE Indication for culture: Dysuria/FrequencySOURCE OF URINE: CLEAN CATCHHCG SERUM 2022-01-05 19:14:00 Test Item Value Reference Range Interpretation Comments HCG SERUM (test < 1 mi-IU/ML 0-6 N 0 - 6 NOT P REGNANT > 6 code = HCG) SUGGESTIVE OF E GELY RISES TWO FOLD EVERY 2 DAYS; S UGGEST RECONFIRMING AF TER 2 DAYS. 150,000-2 [address] TRIMESTER 10 ,000 - 50,000 2ND & 3R D TRIMESTER BASIC METABOLIC [id number] 19:10:00 Test Item Value Reference Range Interpretation Comments SODIUM (test code = NA) 140 mmol/L 134-147 N POTASSIUM (test code = 3.7 mmol/L 3.4-5.0 N K) CHLORIDE (test code = 109 mmol/L 100-108 H CL) CARBON DIOXIDE (test 27 mmol/L 21-32 N code = CO2) ANION GAP (test code = 4.0 GAP calc 4.0-15.0 N GAP) GLUCOSE (test code = 86 MG/DL 70-110 N GLU) BLOOD UREA NITROGEN 10 MG/DL 7-18 N (test code = BUN) GLOMERULAR FILTRATION >=60 max estimate >60 RATE (test code = GFR) estGFR CREATININE (test code = 0.6 MG/DL 0.6-1.0 N CREAT) CALCIUM (test code = CA) 9.5 MG/DL 8.5-10.1 N CBC W/AUTO [id number] 19:01:00 Test Item Value Reference Range Interpretation Comments WHITE BLOOD CELL (test code = 12.0 K/mm3 3.5-11.0 H WBC) RED BLOOD CELL (test code = 4.55 M/mm3 4.70-6.10 L RBC) HEMOGLOBIN (test code = HGB) 13.3 G/DL 10.4-14.9 N HEMATOCRIT (test code = HCT) 39.5 % 31.5-44.1 N MEAN CELL VOLUME (test code = 86.8 Fl 84.5-98.6 N MCV) MEAN CELL HGB (test code = MCH) 29.2 pg 27.0-34.2 N MEAN CELL HGB CONCETRATION 33.7 G/DL 31.5-34.0 N (test code = MCHC) RED CELL DISTRIBUTION WIDTH 12.7 SD 11.5-14.5 N (test code = RDW) PLATELET COUNT (test code = 278 K/mm3 150-450 N PLT) MEAN PLATELET VOLUME (test code 9.10 fL 7.0-10.5 N = MPV) NEUTROPHIL % (test code = NT%) 58.1 % 24.0-85.0 N IMMATURE GRANULOCYTE % (test 0.3 % 0.0-5.0 N code = IG%) LYMPHOCYTE % (test code = LY%) 32.2 % 20.5-51.1 N MONOCYTE % (test code = MO%) 7.1 % 1.7-9.3 N EOSINOPHIL % (test code = EO%) 2.1 % 0.0-6.0 N BASOPHIL % (test code = BA%) 0.2 % 0.0-2.0 N NUCLEATED RBC % (test code = 0.0 /100WBC% 0.0-1.0 N NRBC%) NEUTROPHIL # (test code = NT#) 7.0 K/mm3 1.8-7.6 N IMMATURE GRANULOCYTE # (test 0.04 x10 3/uL 0.00-0.03 H code = IG#) LYMPHOCYTE # (test code = LY#) 3.9 K/mm3 0.6-3.2 H MONOCYTE # (test code = MO#) 0.9 K/mm3 0.3-1.1 N EOSINOPHIL # (test code = EO#) 0.3 K/mm3 0.0-0.4 N BASOPHIL # (test code = BA#) 0.0 K/mm3 0.0-0.1 N NUCLEATED RBC # (test code = 0.0 K/mm3 0.0-0.1 N NRBC#) MANUAL DIFF REQUIRED (test code NO DIFF/SCN CRITERIA = MDIFF) Urinalysis macro (dipstick) panel - [id number] 16:22:00 Test Item Value Reference Range Interpretation Comments Leukocytes (test code = Moderate Leukocytes) Nitrite (test code = negative Nitrite) Urobilinogen (test code = .2 Urobilinogen) Protein (test code = Negative Protein) pH (test code = pH) 5.0 Blood (test code = Blood) Hemolyzed: Trace Specific [place] (test code 1.030 = Specific [place]) Ketone (test code = Ketone) Negative Bilirubin (test code = Negative Bilirubin) Glucose (test code = Negative Glucose) Appearance (test code = Cloudy Appearance) Color (test code = Color) Dark Yellow [facility]
[2023-09-22 08:07] LABS: Specific Gravity 1.028 (1.005-1.030)
[2023-09-22 08:09] LABS: Absolute Lymphocytes (CBC) 2.3 K/uL (0.7-4.9); Hematocrit 36.9 % (36.0-45.0); Lymphocytes % 19.9 % (15.3-44.8); MCV 87.6 fL (80-100); Platelets 246 thou/uL (152-406); RBC Red Blood Cell Count 4.22 M/uL (3.86-4.86)
[2023-09-22 08:24] LABS: Specific Gravity 1.028 (1.005-1.030); Transitional Epithelial <5 /HPF (None Seen); Urine Bacteria <20 /HPF (<20); Urine Bilirubin NEGATIVE (Negative); Urine Blood Negative (Negative); Urine Clarity Turbid (Clear); Urine Color Light-Yellow (Yellow); Urine Glucose NEGATIVE (Negative); Urine Mucus Slight /HPF (None Seen); Urine Protein TRACE (Negative); Urine Urobilinogen Normal (Normal); Urine pH 6.5 (5.0-7.0)
[2023-09-22] MEDS ORDERED: NA CHLORIDE 0.9% 1,000 ML ONE (09:03)
[2023-09-22] MEDS ORDERED: MORPHINE 4 MG/ML SYR ONE (09:03)
[2023-09-22] MEDS ORDERED: ONDANSETRON 4 MG/2 ML VIAL ONE (09:03)
[2023-09-22] MEDS ORDERED: FAMOTIDINE 20 MG/2 ML VIAL IV ONE (09:03)
[2023-09-22 09:18] LABS: Potassium 3.5 mEq/L (3.5-5.1)
--- NOTE | 2023-09-22 09:27 | RAD REPORT ---
EXAM DESCRIPTION: US - Abdomen Exam Limited - 09/22/2023 9:08 am CLINICAL HISTORY: Abdominal pain. Right upper quadrant pain COMPARISON: None. FINDINGS: The gallbladder wall is not thickened. A gallstone is not seen. The biliary tree is normal caliber. IMPRESSION: Unremarkable gallbladder ultrasound.
[2023-09-22 09:36] LABS: Albumin 3.4 g/dL (3.4-5.0); Bilirubin Direct 0.1 mg/dL (0-0.2); Bilirubin Indirect, Calculated 0.2 mg/dL (0.2-0.8); Bilirubin Total 0.3 mg/dL (0.2-1.0); Protein, Total 7.2 g/dL (6.4-8.2)
--- NOTE | 2023-09-22 10:02 | RAD REPORT ---
EXAM DESCRIPTION: US - 1St Trimest Single 1St Fetus - 09/22/2023 9:08 am CLINICAL HISTORY: with abdominal pain COMPARISON: None FINDINGS: Uterus measures 10 x 6 by centimeters. Gestational sac is present within the endometrium. Within this is a pole crown-rump length 5.6 centimeters. Cardiac activity 160 beats per minute. Amniotic fluid normal 4 centimeter isoechoic structure between the placenta and uterine wall. Cervix is closed. 3.4 centimeter right ovarian cyst. Flow is present to the right ovary. No follow-up images of the ova marck cyst recommended Left ovary not seen secondary to overlying bowel gas. No significant free fluid IMPRESSION: Single live intrauterine with an estimated gestational age 12 weeks 0 days. Es timated date of delivery April 05, 2024 4 centimeter isoechoic structure between the placenta and uterine wall probably a myometrial contract ion. Retroplacental bleed and fibroid can have similar appearance. Followup ultrasound in 1 week castillo mmended for re-evaluation
--- NOTE | 2023-09-22 10:11 | ER ---
Nurse's Notes [facility] Name: Trinidad Gonzalez Age: 18 yrs Sex: Female : 2005 Arrival Date: 09/22/2023 Time: 07:38 Bed 9 Private MD: Diagnosis: Gastritis, abdominal pain Presentation: 09/22 08:08 Chief complaint: Patient states: left sided abd pain X 2 days , is approx 12 weeks iw , has been taking tums with no relief. Coronavirus screen: At this time, the client does not indicate any symptoms associated with coronavirus-19. Ebola Screen: Patient negative for fever greater than or equal to 101.5 degrees Fahrenheit, and additional compatible Ebola Virus Disease symptoms Patient denies exposure to infectious person. Patient denies travel to an Ebola-affected area in the 21 days before illness onset. No symptoms or risks identified at this time. Initial Sepsis Screen: Does the patient meet any 2 criteria? No. Patient's initial sepsis screen is negative. Does the patient have a suspected source of infection? No. Patient's initial sepsis screen is negative. Risk Assessment: Do you want to hurt yourself or someone else? Patient reports no desire to harm self or others. 08:08 Method Of Arrival: Ambulatory iw 08:08 Acuity: HAY 3 iw Triage Assessment: 08:15 General: Appears in no apparent distress. Behavior is calm, cooperative. iw Historical: - Allergies: 08:09 VANCOMYCIN AND DERIVATIVES; iw - PMHx: 08:09 Arthritis; DARIERS DX; GERD; Ovarian cyst; shingles; iw - PSHx: 08:09 right ovarian cyst removed (shingles); iw - Immunization history:: Adult Immunizations unknown. - Social history:: Smoking status: unknown. Screenin:27 [facility] ED Fall Risk Assessment (Adult) Score/Fall Risk Level 0 - 2 = Low Risk. Abuse iw screen: Denies threats or abuse. Denies injuries from another. Nutritional screening: No deficits noted. Tuberculosis screening: No symptoms or risk factors identified. Assessment: 08:15 General: Appears in no apparent distress. Behavior is calm, cooperative. Pain: iw Complains of pain in abdomen. Neuro: Level of Consciousness is awake, alert, obeys commands. Cardiovascular: Patient's skin is warm and dry. GI: Abdomen is non-distended, Bowel sounds present X 4 quads. Abd is soft X 4 quads Reports upper abdominal pain. 09:27 Reassessment: Patient appears in no apparent distress at this time. Patient and/or iw family updated on plan of care and expected duration. Pain level reassessed. Patient is alert, oriented x 3, equal unlabored respirations, skin warm/dry/pink. Vital Signs: 08:08 BP 103 / 56; Pulse 65; Resp 16; Temp 98.1; Pulse Ox 100% on R/A; iw ED Course: 07:40 Patient arrived in ED. rg4 07:41 Alyse Key MD is Attending Physician. sp3 07:59 Amy Hinojosa, JAY is Primary Nurse. iw 08:01 Initial lab(s) drawn, by me, sent to lab. Inserted saline lock: 20 gauge in right kj1 antecubital area, using aseptic technique. Blood collected. 08:09 Triage completed. iw 08:09 Arm band placed on. iw 08:15 Patient has correct armband on for positive identification. Provided Education on: . iw 09:10 US Abdomen Limited In Process Unspecified. EDMS 09:10 1St Trimest Single 1St Fetus In Process Unspecified. EDMS 10:45 No provider procedures requiring assistance completed. IV discontinued, intact, iw bleeding controlled, No redness/swelling at site. Pressure dressing applied. Administered Medications: 09:11 Drug: NS 0.9% IV 1000 ml IV at 1 bolus Per protocol; 1000 mL bolus Route: IV; Rate: 1 iw bolus; Site: right antecubital; 10:00 Follow up: IV Status: Completed infusion iw 09:12 Drug: Famotidine IVP 20 mg IVP once; dilute with 10 mL 0.9% NaCl; give over 2 minutes iw Route: IVP; Site: right antecubital; 09:45 Follow up: Response: No adverse reaction iw 09:12 Drug: Ondansetron IVP 4 mg IVP once; over 2 minutes Route: IVP; Site: right antecubital;iw 09:30 Follow up: Response: No adverse reaction iw 10:39 Drug: morphine IVP or IV 4 mg IVP once over 4 mins Route: IVP; Infused Over: 4 mins; iw Site: right antecubital; 10:49 Follow up: Response: No adverse reaction iw Medication: 08:15 VIS not applicable for this client. iw Outcome: 10:11 Discharge ordered by . sp3 10:45 Discharged to home ambulatory, with family, iw 10:45 Condition: good 10:45 Discharge instructions given to patient, family, Instructed on discharge instructions, follow up and referral plans. Demonstrated understanding of instructions, follow-up care, 10:46 Patient left the ED. iw Signatures: Dispatcher [employer] Amy Gurrola RN RN iw Garcia, Rubi rg4 Naz Ortega kj1 Alyse Key MD MD sp3
--- NOTE | 2023-09-22 10:11 | EDPHYS ---
Physician Documentation [facility] Name: Trinidad Gonzalez Age: 18 yrs Sex: Female : 2005 Arrival Date: 09/22/2023 Time: 07:38 Bed 9 Private MD: ED Physician Alyse Key HPI: 09/22 08:21 This 18 yrs old Female presents to ER via Ambulatory with complaints of sp3 Abdominal Pain, 12 Weeks . 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 Patient is also 12 weeks is a A0 patient with conception date confirmed with ultrasound for June 30, 2023. Patient denies any FEATURES REPORTER symptoms including bleeding, discharge or lower abdominal pain. She also denies headache, neck pain, shortness of breath, lower back pain, right-sided abdominal pain, dysuria, urinary frequency, syncope, near syncope, seizure, change in urine output, diarrhea, or any other signs or symptoms on ROS at this time. Patient did discuss case with her OB who recommended OTC Tums and to come to the ED if her symptoms worsened.. Historical: - Allergies: 08:09 VANCOMYCIN AND DERIVATIVES; iw - PMHx: 08:09 Arthritis; DARIERS DX; GERD; Ovarian cyst; shingles; iw - PSHx: 08:09 right ovarian cyst removed (shingles); iw - Immunization history:: Adult Immunizations unknown. - Social history:: Smoking status: unknown. ROS: 08:23 Constitutional: Negative for fever, chills, and weight loss, Eyes: Negative for injury, sp3 pain, redness, and discharge, ENT: Negative for injury, pain, and discharge, Neck: Negative for injury, pain, and swelling, Cardiovascular: Negative for chest pain, palpitations, and edema, Respiratory: Negative for shortness of breath, cough, wheezing, and pleuritic chest pain, Back: Negative for injury and pain, MS/Extremity: Negative for injury and deformity, Skin: Negative for injury, rash, and discoloration, Neuro: Negative for headache, weakness, numbness, tingling, and seizure, Psych: Negative for depression, anxiety, suicide ideation, homicidal ideation, and hallucinations, Allergy/Immunology: Negative for hives, rash, and allergies, Endocrine: Negative for neck swelling, polydipsia, polyuria, polyphagia, and marked weight changes, Hematologic/Lymphatic: Negative for swollen nodes, abnormal bleeding, and unusual bruising, 08:23 All other systems are negative, Exam: 08:23 Constitutional: This is a well developed, well nourished patient who is awake, alert, sp3 and in no acute distress. Head/Face: Normocephalic, atraumatic. Eyes: Pupils equal round and reactive to light, extra-ocular motions intact. Lids and lashes normal. Conjunctiva and sclera are non-icteric and not injected. Cornea within normal limits. Periorbital areas with no swelling, redness, or edema. ENT: Nares patent. No nasal discharge, no septal abnormalities noted. External auditory canals are clear. Oropharynx with no redness, swelling, or masses, exudates, or evidence of obstruction, uvula midline. Mucous membranes moist. Neck: Trachea midline, no thyromegaly or masses palpated, and no cervical lymphadenopathy. Supple, full range of motion without nuchal rigidity, or vertebral point tenderness. No Meningismus. Chest/axilla: Normal chest wall appearance and motion. Nontender with no deformity. No lesions are appreciated. Cardiovascular: Regular rate and rhythm with a normal S1 and S2. No gallops, murmurs, or rubs. Normal PMI, no JVD. No pulse deficits. Respiratory: Lungs have equal breath sounds bilaterally, clear to auscultation and percussion. No rales, rhonchi or wheezes noted. No increased work of breathing, no retractions or nasal flaring. Back: No spinal tenderness. No costovertebral tenderness. Full range of motion. Skin: Warm, dry with normal turgor. Normal color with no rashes, no lesions, and no evidence of cellulitis. MS/ Extremity: Pulses equal, no cyanosis. Neurovascular intact. Full, normal range of motion. Neuro: Awake and alert, GCS 15, oriented to person, place, time, and situation. Cranial nerves II-XII grossly intact. Motor strength 5/5 in all extremities. Sensory grossly intact. Cerebellar exam normal. Normal gait. Psych: Awake, alert, with orientation to person, place and time. Behavior, mood, and affect are within normal limits. 08:23 Abdomen/GI: Patient has pain to palpation epigastric region and on the left side. No rebound or guarding noted. Nonsurgical abdomen. No pain on the right side or lower quadrants., Vital Signs: 08:08 BP 103 / 56; Pulse 65; Resp 16; Temp 98.1; Pulse Ox 100% on R/A; iw MDM: 07:42 Patient medically screened. sp3 08:24 Data reviewed: vital signs, nurses notes, lab test result(s), radiologic studies. ED sp3 course: 18-year-old female with epigastric pain and vomiting who is also 12 weeks . Differential diagnosis includes gastritis, pancreatitis, biliary pathology, intestinal pathology, viral syndrome, hyperemesis, among others. I am not highly suspicious for FEATURES REPORTER pathology or complication at this time. However we will assess with ultrasound as well as abdominal ultrasound for her other differential. Lab work and urine analysis are also pending. Pepcid, morphine, ondansetron, normal saline all IV have been ordered and will be given. Disposition pending work-up and patient course.. 10:10 ED course: Patient is mildly improved. She now states she will take her morphine prior sp3 to discharge. Ultrasounds demonstrate no significant or acute abnormality however on her pelvic ultrasound there is a potential retroplacental bleed which will need follow-up ultrasound. I have given her a copy of her ultrasound today and she will follow-up with her OB to get that accomplished. Lipase, LFTs, CBC and other laboratory values are all within normal limits. Patient does not have an acute abdomen and we will safely discharge her home at this time. She already has Zofran and requires no further prescriptions.. 09/22 07:42 Order name: Abo/rh Typing; Complete Time: :47 sp3 09/22 07:42 Order name: Basic Metabolic Panel; Complete Time: :47 sp3 09/22 07:42 Order name: CBC with Diff; Complete Time: :47 sp3 09/22 07:42 Order name: Test, Urine; Complete Time: :47 sp3 09/22 07:42 Order name: Quantitative Hcg; Complete Time: :47 sp3 09/22 07:42 Order name: Urinalysis w/ reflexes; Complete Time: 09:47 sp3 09/22 08:09 Order name: LFT's; Complete Time: 09:47 sp3 09/22 08:09 Order name: Lipase; Complete Time: 09:47 sp3 09/22 08:25 Order name: US Abdomen Limited; Complete Time: 09:47 sp3 09/22 08:52 Order name: 1St Trimest Single 1St Fetus; Complete Time: 10:03 EDMS 09/22 07:42 Order name: IV Saline Lock; Complete Time: 08:01 sp3 09/22 07:42 Order name: Labs collected and sent; Complete Time: 08:01 sp3 09/22 07:42 Order name: NPO; Complete Time: 08:28 sp3 Administered Medications: 09:11 Drug: NS 0.9% IV 1000 ml IV at 1 bolus Per protocol; 1000 mL bolus Route: IV; Rate: 1 iw bolus; Site: right antecubital; 10:00 Follow up: IV Status: Completed infusion iw 09:12 Drug: Famotidine IVP 20 mg IVP once; dilute with 10 mL 0.9% NaCl; give over 2 minutes iw Route: IVP; Site: right antecubital; 09:45 Follow up: Response: No adverse reaction iw 09:12 Drug: Ondansetron IVP 4 mg IVP once; over 2 minutes Route: IVP; Site: right antecubital;iw 09:30 Follow up: Response: No adverse reaction iw 10:39 Drug: morphine IVP or IV 4 mg IVP once over 4 mins Route: IVP; Infused Over: 4 mins; iw Site: right antecubital; 10:49 Follow up: Response: No adverse reaction iw Disposition Summary: 09/22/23 10:11 Discharge Ordered Notes: Location: Home sp3 Condition: Stable sp3 Diagnosis - Gastritis, abdominal pain sp3 Followup: sp3 - With: Private Physician - When: Upon discharge from the Emergency Department - Reason: Continuance of care Discharge Instructions: - Discharge Summary Sheet sp3 - Gastritis, Adult sp3 Forms: - Work release form iw - Medication Reconciliation Form sp3 - Thank You Letter sp3 - Antibiotic Education sp3 - Prescription Opioid Use sp3 - Patient Portal Instructions sp3 - Leadership Thank You Letter sp3 Signatures: Dispatcher [employer] Amy Gurrola RN RN iw Alyse Key MD MD sp3 Corrections: (The following items were deleted from the chart) 08:52 07:42 Transvaginal Ob+US.RAD.BRZ ordered. EDMS EDMS
[2023-09-22 10:51] VITALS: BP 103/56; TEMP 98.1; O2SAT 100
== END 2023-09-22 10:46 | disposition home or self-care (01) ==
LOC: ER 07:38
DX: O99.611 Diseases of the digestive system complicating pregnancy, first trimester (principal); K29.70 Gastritis, unspecified, without bleeding; Z3A.12 12 weeks gestation of pregnancy; Z88.3 Allergy status to other anti-infective agents
CPT/HCPCS: 96361; 85025; 81001; 80048; 36415; 86900; 81025; 86901; 80076; 84702; 83690; 76705; 76801; 96375; 96374; 99284; J2405; J7030

== ENCOUNTER → 2023-12-15 | Emergency (ER) | payer OTHER ==
--- NOTE | 2023-12-15 12:16 | RAD REPORT ---
EXAM DESCRIPTION: US - Extrem Venous W Compress Simone - 12/15/2023 12:01 pm CLINICAL HISTORY: PAIN COMPARISON: No comparisons TECHNIQUE: Real-time sonographic evaluation of the lower extremity deep venous systems was performed using color Doppler, grayscale, and compression. FINDINGS: Bilateral lower extremities. Normal compressibility, flow augmentation, phasic flow and spontaneous flow is identified in both the left and right lower extremity deep venous systems. No intraluminal filling defects seen. IMPRESSION: No DVT in either lower extremity.
[2023-12-15 12:33] LABS: MPV 8.1 fL (7.6-11.3)
[2023-12-15 12:45] LABS: Absolute Lymphocytes (CBC) 2.1 K/uL (0.7-4.9); Hematocrit 33.4 % (36.0-45.0); Lymphocytes % 14.9 % (15.3-44.8); MCV 88.7 fL (80-100); Platelets 238 thou/uL (152-406); RBC Red Blood Cell Count 3.76 M/uL (3.86-4.86)
[2023-12-15 12:50] LABS: Specific Gravity 1.009 (1.005-1.030); Urine Bacteria None Seen /HPF (<20); Urine Bilirubin NEGATIVE (Negative); Urine Blood Negative (Negative); Urine Clarity Turbid (Clear); Urine Color Colorless (Yellow); Urine Glucose NEGATIVE (Negative); Urine Mucus Slight /HPF (None Seen); Urine Protein NEGATIVE (Negative); Urine RBC <5 /HPF (None Seen); Urine Urobilinogen Normal (Normal)
[2023-12-15 12:50] LABS: Potassium 3.6 mEq/L (3.5-5.1); Troponin High Sensitivity 3.3 pg/mL (<58.9)
--- NOTE | 2023-12-15 13:32 | RAD REPORT ---
EXAM DESCRIPTION: Ashley Single View12/15/2023 1:14 pm CLINICAL HISTORY: CHEST PAIN COMPARISON: Chest Pa And Lat (2 Views) dated 11/26/2016; CHEST PA AND LAT 2 VIEW dated 06/11/2009; FAZAL ST PA AND LAT 2 VIEW dated 10/11/2004 TECHNIQUE: Portable AP view of the chest. FINDINGS: The lungs are clear. No pneumothorax or effusion. The cardiomediastinal contours are unre markable. IMPRESSION: No acute cardiopulmonary process.
--- NOTE | 2023-12-15 14:11 | ER ---
Nurse's Notes [facility] Name: Trinidad Gonzalez Age: 18 yrs Sex: Female : 2005 Arrival Date: 12/15/2023 Time: 11:24 Bed 2 Private MD: Diagnosis: Chest pain, unspecified;26 weeks gestation of ;Elevated white blood cell count Presentation: 12/15 11:33 Chief complaint: Patient states: CP, 26 weeks . Coronavirus screen: Client ll1 denies travel out of the [place] in the last 14 days. Ebola Screen: Patient denies travel to an Ebola-affected area in the 21 days before illness onset. Initial Sepsis Screen: Does the patient meet any 2 criteria? No. Patient's initial sepsis screen is negative. Does the patient have a suspected source of infection? Yes: Productive cough/pneumonia. Risk Assessment: Do you want to hurt yourself or someone else? Patient reports no desire to harm self or others. 11:33 Method Of Arrival: Ambulatory ll1 11:33 Acuity: HAY 3 ll1 Historical: - Allergies: 11:33 VANCOMYCIN AND DERIVATIVES; ll1 - PMHx: 11:33 Arthritis; DARIERS DX; GERD; Ovarian cyst; shingles; ll1 - PSHx: 11:33 right ovarian cyst removed (es); ll1 - Immunization history:: Adult Immunizations up to date. - Social history:: Smoking status: Patient denies any tobacco usage or history of. - Family history:: not pertinent. Screenin:36 [facility] ED Fall Risk Assessment (Adult) History of falling in the last 3 months, cp4 including since admission No falls in past 3 months (0 pts). [facility] ED Fall Risk Assessment (Adult) Confusion or Disorientation No (0 pts) Intoxicated or Sedated No (0 pts) Impaired Gait No (0 pts) Mobility Assist Device Used No (0 pt) Altered Elimination No (0 pt) Score/Fall Risk Level 0 - 2 = Low Risk Oriented to surroundings, Maintained a safe environment, Educated pt \T\ family on fall prevention, incl call for assistance when getting out of bed, Assessed \T\ reinforced patient's understanding of fall precautions, Provided non-skid footwear, Hourly rounding (assess needs \T\ fall precautionary measures) done. Abuse screen: Denies threats or abuse. Nutritional screening: No deficits noted. Tuberculosis screening: No symptoms or risk factors identified. Assessment: 11:36 General: Appears in no apparent distress. Behavior is calm, cooperative, appropriate cp4 for age. Pain: Pain does not radiate. Pain began suddenly. Cardiovascular: No deficits noted. 12:36 Reassessment: Patient appears in no apparent distress at this time. No changes from [facility] previously documented assessment. Patient and/or family updated on plan of care and expected duration. Pain level reassessed. Patient is alert, oriented x 3, equal unlabored respirations, skin warm/dry/pink. 13:36 Reassessment: Patient appears in no apparent distress at this time. No changes from 6 previously documented assessment. Patient and/or family updated on plan of care and expected duration. Pain level reassessed. Patient is alert, oriented x 3, equal unlabored respirations, skin warm/dry/pink. 14:27 Reassessment: Patient appears in no apparent distress at this time. No changes from [facility] previously documented assessment. Patient and/or family updated on plan of care and expected duration. Pain level reassessed. Patient is alert, oriented x 3, equal unlabored respirations, skin warm/dry/pink. Vital Signs: 11:37 BP 120 / 68; Pulse 67; Resp 17 S; Pulse Ox 98% on R/A; kc6 14:27 BP 100 / 68; Pulse 71; Resp 14 S; Pulse Ox 100% on R/A; kc6 Vitals: 12:25 Heart Tones 144bpm. kc6 ED Course: 11:26 Patient arrived in ED. rg4 11:30 Damion Roblero MD is Attending Physician. josie 11:33 Arm band placed on Patient placed in an exam room, on a stretcher. ll1 11:34 Triage completed. ll1 11:36 Michell Montgomery is Primary Nurse. cp4 11:36 Bed in low position. Call light in reach. Side rails up X 1. Client placed on cp4 continuous cardiac and pulse oximetry monitoring. NIBP monitoring applied. 11:36 Patient maintains SpO2 saturation greater than 95% on room air. cp4 12:02 US Extremity Venous W Compression Simone In Process Unspecified. EDMS 12:24 Inserted saline lock: 20 gauge in right antecubital area, using aseptic technique. kc6 Blood collected. 13:15 XRAY Chest (1 view) In Process Unspecified. EDMS 13:58 CT Chest For PE Angio: shield In Process Unspecified. EDMS 14:30 Provided Education on: chest pain. cp4 14:30 No provider procedures requiring assistance completed. intact, bleeding controlled, No cp4 redness/swelling at site. Pressure dressing applied. Administered Medications: 12:24 Drug: NS 0.9% IV 1000 ml IV at 1 bolus Per protocol; 1000 mL bolus Route: IV; Rate: 1 kc6 bolus; Site: right antecubital; 14:27 Follow up: Response: No adverse reaction; IV Status: Completed infusion; IV Intake: kc6 1000ml Medication: 11:36 VIS not applicable for this client. cp4 Intake: 14:27 IV: 1000ml; Total: 1000ml. kc6 Outcome: 14:11 Discharge ordered by . josie 14:30 Discharged to home ambulatory, cp4 14:30 Condition: stable 14:30 Discharge instructions given to patient, Instructed on discharge instructions, follow up and referral plans. Demonstrated understanding of instructions, follow-up care, 14:32 Patient left the ED. cp4 Signatures: Dispatcher [employer] EDDamion Gao MD MD cha Garcia, Rubi rg4 Milly Rogers RN RN ll1 Sary Sanabria RN RN kc6 Michell Montgomery cp4
--- NOTE | 2023-12-15 14:11 | EDPHYS ---
Physician Documentation [facility] Name: Trinidad Gonzalez Age: 18 yrs Sex: Female : 2005 Arrival Date: 12/15/2023 Time: 11:24 Bed 2 Private MD: ED Physician Damion Roblero HPI: 12/15 14:03 This 18 yrs old Female presents to ER via Ambulatory with complaints of 26 wks josie , Chest Pain. 14:03 The patient or guardian reports chest pain that is located primarily in the substernal josie area. The pain does not radiate. Associated signs and symptoms: The patient has no apparent associated signs or symptoms. The chest pain is described as aching. Modifying factors: The symptoms are alleviated by nothing. the symptoms are aggravated by nothing. Severity of pain: At its worst the pain was mild in the emergency department the pain is unchanged. The patient has not experienced similar symptoms in the past. Historical: - Allergies: 11:33 VANCOMYCIN AND DERIVATIVES; ll1 - PMHx: 11:33 Arthritis; DARIERS DX; GERD; Ovarian cyst; shingles; ll1 - PSHx: 11:33 right ovarian cyst removed (es); ll1 - Immunization history:: Adult Immunizations up to date. - Social history:: Smoking status: Patient denies any tobacco usage or history of. - Family history:: not pertinent. ROS: 14:03 Constitutional: Negative for fever, chills, and weight loss, Eyes: Negative for injury, josie pain, redness, and discharge, ENT: Negative for injury, pain, and discharge, Neck: Negative for injury, pain, and swelling, Respiratory: Negative for shortness of breath, cough, wheezing, and pleuritic chest pain, Abdomen/GI: Negative for abdominal pain, nausea, vomiting, diarrhea, and constipation, Back: Negative for injury and pain, : Negative for injury, bleeding, discharge, and swelling, MS/Extremity: Negative for injury and deformity, Skin: Negative for injury, rash, and discoloration, Neuro: Negative for headache, weakness, numbness, tingling, and seizure, Psych: Negative for depression, anxiety, suicide ideation, homicidal ideation, and hallucinations, Allergy/Immunology: Negative for hives, rash, and allergies, Endocrine: Negative for neck swelling, polydipsia, polyuria, polyphagia, and marked weight changes, Hematologic/Lymphatic: Negative for swollen nodes, abnormal bleeding, and unusual bruising, 14:03 Cardiovascular: Positive for chest pain, 14:03 Respiratory: Positive for cough, with no reported sputum, Exam: 14:03 Constitutional: This is a well developed, well nourished patient who is awake, alert, josie and in no acute distress. Head/Face: Normocephalic, atraumatic. Eyes: Pupils equal round and reactive to light, extra-ocular motions intact. Lids and lashes normal. Conjunctiva and sclera are non-icteric and not injected. Cornea within normal limits. Periorbital areas with no swelling, redness, or edema. ENT: Nares patent. No nasal discharge, no septal abnormalities noted. Tympanic membranes are normal and external auditory canals are clear. Oropharynx with no redness, swelling, or masses, exudates, or evidence of obstruction, uvula midline. Mucous membranes moist. Neck: Trachea midline, no thyromegaly or masses palpated, and no cervical lymphadenopathy. Supple, full range of motion without nuchal rigidity, or vertebral point tenderness. No Meningismus. Chest/axilla: Normal chest wall appearance and motion. Nontender with no deformity. No lesions are appreciated. Cardiovascular: Regular rate and rhythm with a normal S1 and S2. No gallops, murmurs, or rubs. Normal PMI, no JVD. No pulse deficits. Respiratory: Lungs have equal breath sounds bilaterally, clear to auscultation and percussion. No rales, rhonchi or wheezes noted. No increased work of breathing, no retractions or nasal flaring. Abdomen/GI: Soft, non-tender, with normal bowel sounds. No distension or tympany. No guarding or rebound. No evidence of tenderness throughout. Back: No spinal tenderness. No costovertebral tenderness. Full range of motion. Skin: Warm, dry with normal turgor. Normal color with no rashes, no lesions, and no evidence of cellulitis. MS/ Extremity: Pulses equal, no cyanosis. Neurovascular intact. Full, normal range of motion. Neuro: Awake and alert, GCS 15, oriented to person, place, time, and situation. Cranial nerves II-XII grossly intact. Motor strength 5/5 in all extremities. Sensory grossly intact. Cerebellar exam normal. Normal gait. 14:03 ECG was reviewed by the Attending Physician. 14:07 Musculoskeletal/extremity: DVT Exam: No signs of deep vein thrombosis. no pain, no josie swelling, no tenderness, negative Homans' sign noted on exam, no appreciated bluish discoloration, no erythema, no increased warmth, Calves: are non-tender, have equal circumference, Vital Signs: 11:37 BP 120 / 68; Pulse 67; Resp 17 S; Pulse Ox 98% on R/A; kc6 14:27 BP 100 / 68; Pulse 71; Resp 14 S; Pulse Ox 100% on R/A; kc6 MDM: 11:30 Patient medically screened. [facility] 14:08 Differential diagnosis: abnormal EKG, acute myocardial infarction, acute pericarditis, josie anxiety, coronary artery disease chest wall pain, costochondritis, gastroesophageal reflux disease (GERD), hiatal hernia, pancreatitis, peptic ulcer disease, pneumonia, pulmonary embolus, stable angina, unstable angina. HEART Score: History: Slightly Suspicious (0), ECG: Normal (0), Age: < or = 45 years (0), Risk Factors: No Risk Factors Known (0), Troponin: < or = 1 x Normal Limit (0), Total Score = 0. DEAN Risk Score: TOTAL SCORE = 0. Data reviewed: vital signs, nurses notes, lab test result(s), EKG, radiologic studies, CT scan, plain films. Consideration of Admission/Observation Escalation of care including admission/observation considered. I considered the following discharge prescriptions or medication management in the emergency department Medications were administered in the Emergency Department. See MAR. Independent interpretation of the following test(s) in the Emergency Department EKG: See my EKG interpretation above. Test considered but Not performed: Ultrasound no 2 d echo. Historians other than the Patient: pt well informed. 12/15 11:32 Order name: Basic Metabolic Panel; Complete Time: 13:31 [facility] 12/15 11:32 Order name: CBC with Diff; Complete Time: 13:31 [facility] 12/15 11:32 Order name: Troponin HS; Complete Time: 13:31 [facility] 12/15 11:32 Order name: D-Dimer; Complete Time: 13:31 [facility] 12/15 11:32 Order name: Urinalysis w/ reflexes; Complete Time: 13:31 [facility] 12/15 11:32 Order name: XRAY Chest (1 view); Complete Time: 14:01 [facility] 12/15 11:32 Order name: US Extremity Venous W Compression Simone; Complete Time: 13:31 [facility] 12/15 13:33 Order name: CT Chest For PE Angio: shield [facility] 12/15 11:32 Order name: EKG; Complete Time: 11:32 [facility] 12/15 11:32 Order name: Cardiac monitoring; Complete Time: 12:24 [facility] 12/15 11:32 Order name: EKG - Nurse/Tech; Complete Time: 12:24 [facility] 12/15 11:32 Order name: IV Saline Lock; Complete Time: 12:24 [facility] 12/15 11:32 Order name: Labs collected and sent; Complete Time: 12:24 [facility] 12/15 11:32 Order name: O2 Per Protocol; Complete Time: 11:59 [facility] 12/15 11:32 Order name: O2 Sat Monitoring; Complete Time: 11:59 [facility] 12/15 11:32 Order name: FHT's; Complete Time: 12:24 [facility] EC:03 Rate is 59 beats/min. Rhythm is regular. QRS [place]ay is Normal. CA interval is normal. QRS josie interval is normal. QT interval is normal. No Q waves. T waves are Normal. No ST changes noted. Clinical impression: Normal ECG and No evidence of ischemia. Interpreted by me. Reviewed by me. Administered Medications: 12:24 Drug: NS 0.9% IV 1000 ml IV at 1 bolus Per protocol; 1000 mL bolus Route: IV; Rate: 1 kc6 bolus; Site: right antecubital; 14:27 Follow up: Response: No adverse reaction; IV Status: Completed infusion; IV Intake: kc6 1000ml Disposition Summary: 12/15/23 14:11 Discharge Ordered Notes: Location: Home josie Problem: new josie Symptoms: have improved josie Condition: Stable josie Diagnosis - Chest pain, unspecified josie - 26 weeks gestation of josie - Elevated white blood cell count josie Followup: josie - With: Private Physician - When: 2 - 3 days - Reason: Recheck today's complaints, Continuance of care, Re-evaluation by your physician Discharge Instructions: - Discharge Summary Sheet josie - Nonspecific Chest Pain, Adult josie - Care josie - Nonspecific Chest Pain, Adult, [id number] josie Forms: - Medication Reconciliation Form josie - Thank You Letter josie - Antibiotic Education josie - Prescription Opioid Use josie - Patient Portal Instructions josie - Leadership Thank You Letter josie Signatures: Dispatcher [employer] Damion Cerda MD MD cha Lewis, Lynsay RN RN ll1 Sary Sanabria RN RN kc6
--- NOTE | 2023-12-15 14:31 | RAD REPORT ---
EXAM DESCRIPTION: CT - Chest For Pe Angio - 12/15/2023 1:56 pm CLINICAL HISTORY: CHEST PAIN COMPARISON: No comparisons TECHNIQUE: Thin axial CT images of the chest were obtained following administration of 100 mL Isovue 370 IV contrast. Multiplanar reconstructions, and maximum intensity projection reconstructions were generated and reviewed. Exam utilizes a protocol for optimal evaluation of pulmonary arterial tree. All CT scans are performed using dose optimization technique as appropriate and may include automated exposure control or mA/KV adjustment according to patient size. FINDINGS: Pulmonary arteries are normal. No emboli or other suspicious finding. No acute or signific ant aorta findings. No mass or infiltrate in the lung parenchyma. No pleural thickening or pleural effusion. No pneumotho rax. No abnormal mediastinal or hilar masses or lymphadenopathy seen. No chest wall mass or abnormal axill iary lymphadenopathy. IMPRESSION: No evidence of acute central pulmonary emboli. No other acute findings in the chest.
[2023-12-15 15:02] VITALS: BP 100/68; O2SAT 100
--- NOTE | 2023-12-19 15:14 | EKG ---
Test Date: 2023-12-15 Test Time: 12:08:26 Supervisor Filling And Packing: [email or web address] MEASUREMENT RESULTS: Intervals: Rate: 59 MI: 116 QRSD: 102 QT: 444 QTc: 439 [place]: P: 49 MI: 116 QRS: 30 T: 23 INTERPRETIVE STATEMENTS: Sinus bradycardia Cannot rule out Anterior infarct, age undetermined Abnormal ECG Compared to ECG 02/09/2017 21:32:02 Myocardial infarct finding now present Electronically Signed On 12-19-23 15:03:35 INSPECTOR PUBLICATIONS by Joselo Jung
== END ==
LOC: ER 11:24
DX: O26.892 Other specified pregnancy related conditions, second trimester (principal); O99.112 Other diseases of the blood and blood-forming organs and certain disorders involving the immune mechanism complicating pregnancy, second trimester; R07.9 Chest pain, unspecified; D72.829 Elevated white blood cell count, unspecified; Z3A.26 26 weeks gestation of pregnancy; Z88.3 Allergy status to other anti-infective agents
CPT/HCPCS: 93005; 85025; 81001; 80048; 36415; 85379; 84484; 71275; 71045; 93970; Q9967